=== PATIENT | male | born 1960 | race Two or more races ===

== ENCOUNTER 2021-07-18 10:35 | Outpatient (REF) | payer OTHER, SELFPAY ==
[2021-07-18 10:54] LABS: MANUAL DIFF FLAG NO
[2021-07-18 11:07] LABS: Basophils Percent Auto 0.6 % (0-2); Eosinophils Absolute Auto 0.3 X10*3/uL (0.0-0.4); Eosinophils Percent Auto 5.3 % (0-4); Hematocrit 40.7 % (42.0-52.0); Imm Gran Abs Auto 0.03 X10*3/uL (0.00-0.03); Imm Gran Pct Auto 0.6 % (0.0-0.4); Lymphocytes Absolute Auto 1.8 X10*3/uL (1.2-4.9); Lymphocytes Percent Auto 34.2 % (20-40); Mean Corpuscular HGB Conc 34.4 g/dl (31.0-36.0); Mean Corpuscular Hemoglobin 30.8 pg (27.0-33.0); Mean Corpuscular Volume 89.6 fL (80.0-98.0); Mean Platelet Volume 10.1 fL (9.4-12.4); Monocytes Absolute Auto 0.5 X10*3/uL (0.1-1.2); Monocytes Percent Auto 8.8 % (2-11); Neutrophils Absolute Auto 2.7 x10*3/uL (2.0-8.3); Neutrophils Percent Auto 50.5 % (45-73); Platelet Count 190 X10*3/uL (160-400); Red Blood Count 4.54 X10*6/uL (4.60-5.80); Red Cell Distribution Width 12.3 % (11.0-16.0); White Blood Count 5.3 X10*3/uL (4.8-10.8)
[2021-07-18 11:55] LABS: Alanine Aminotransferase 31 U/L (0-40); Albumin Level 4.4 g/dL (3.5-5.0); Alkaline Phosphatase 105 U/L (39-117); Anion Gap 11 (12-20); Aspartate Amino Transferase 18 U/L (5-37); Bilirubin Total 0.7 mg/dL (0.0-1.0); Blood Urea Nitrogen 18 mg/dL (9-16); Calcium 9.6 mg/dL (8.4-10.2); Carbon Dioxide 30 mmol/L (22-29); Chloride 100 mmol/L (96-108); Cholesterol 228 mg/dL; Estimated Glomerular Filt Rate > 60; Glucose Fasting 207 mg/dL (60-99); HDL Cholesterol 32 mg/dL; Potassium 3.9 mmol/L (3.3-5.1); Sodium 137 mmol/L (135-145); Total Protein 7.5 g/dL (6.5-8.0); Triglycerides 597 mg/dL
[2021-07-18 12:07] LABS: TSH reflex Free T4 1.05 uIU/mL (0.32-4.0); Vitamin D 25-OH Total 14.5 ng/mL (>30)
[2021-07-18 12:37] LABS: Appearance Urine CLEAR; Color Urine YELLOW; Glucose Urine UA 250 MG/DL (NEG); Leukocyte Esterase Urine NEG (NEG); Nitrite Urine NEG (NEG); Specific Gravity - Urine 1.015 (1.005-1.025); Urine Blood NEG (NEG); Urine Ketones NEG (NEG); Urine Protein NEG (NEG-TRACE)
[2021-07-18 12:54] LABS: Creatinine Urine 65.28 mg/dL; Microalbum/Creatinine Ratio Ur 111.8 ug/mg cr
== END 2021-07-18 10:36 | disposition home or self-care (01) ==
LOC: HO.LAB 10:35
PROVIDERS: PCP Internal Medicine; Visit Provider Internal Medicine
DX: E78.00 Pure hypercholesterolemia, unspecified (principal); E11.9 Type 2 diabetes mellitus without complications; E55.9 Vitamin D deficiency, unspecified; I10 Essential (primary) hypertension
CPT/HCPCS: 36415; 80053; 80061; 81003; 82043; 82306; 84443; 85025

== ENCOUNTER 2023-02-19 09:14 | Outpatient (AMB) | payer OTHER, SELFPAY ==
[2023-02-19 09:16] VITALS: BP 160/110; PULSE 80; O2SAT 98; BMI 26.7
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
== END 2023-02-19 10:06 | disposition home or self-care (01) ==
PROVIDERS: PCP Internal Medicine; Visit Provider Internal Medicine
DX: Z00.00 Encounter for general adult medical examination without abnormal findings (principal); I10 Essential (primary) hypertension; E11.65 Type 2 diabetes mellitus with hyperglycemia; E78.00 Pure hypercholesterolemia, unspecified; M17.11 Unilateral primary osteoarthritis, right knee; S20.211S Contusion of right front wall of thorax, sequela; S30.1XXS Contusion of abdominal wall, sequela; E55.9 Vitamin D deficiency, unspecified; E66.3 Overweight; Z12.11 Encounter for screening for malignant neoplasm of colon
CPT/HCPCS: 99396

== ENCOUNTER 2023-02-19 10:15 | Outpatient (REF) | payer OTHER, SELFPAY ==
[2023-02-19 10:46] LABS: Basophils Percent Auto 0.5 % (0-2); Eosinophils Absolute Auto 0.4 X10*3/uL (0.0-0.4); Eosinophils Percent Auto 6.1 % (0-4); Hematocrit 41.7 % (42.0-52.0); Hemoglobin 14.2 g/dl (14.0-18.0); Imm Gran Abs Auto 0.04 X10*3/uL (0.00-0.03); Imm Gran Pct Auto 0.6 % (0.0-0.4); Lymphocytes Percent Auto 32.9 % (20-40); MANUAL DIFF FLAG NO; Mean Corpuscular HGB Conc 34.1 g/dl (31.0-36.0); Mean Corpuscular Hemoglobin 29.6 pg (27.0-33.0); Mean Corpuscular Volume 86.9 fL (80.0-98.0); Mean Platelet Volume 10.4 fL (9.4-12.4); Monocytes Absolute Auto 0.5 X10*3/uL (0.1-1.2); Monocytes Percent Auto 8.5 % (2-11); Neutrophils Absolute Auto 3.2 x10*3/uL (2.0-8.3); Neutrophils Percent Auto 51.4 % (45-73); Platelet Count 178 X10*3/uL (160-400); Red Cell Distribution Width 11.8 % (11.0-16.0); White Blood Count 6.2 X10*3/uL (4.8-10.8)
[2023-02-19 10:50] LABS: Estimated Average Glucose 260 mg/dL; Hemoglobin A1c % 10.7 % (<6.0)
[2023-02-19 11:37] LABS: Alanine Aminotransferase 54 U/L (0-40); Albumin Level 4.3 g/dL (3.5-5.0); Alkaline Phosphatase 136 U/L (39-117); Anion Gap 14 (12-20); Aspartate Amino Transferase 30 U/L (5-37); Bilirubin Total 0.5 mg/dL (0.0-1.0); Blood Urea Nitrogen 15 mg/dL (9-16); Calcium 9.5 mg/dL (8.4-10.2); Carbon Dioxide 29 mmol/L (22-29); Chloride 100 mmol/L (96-108); Cholesterol 203 mg/dL (<200); Estimated Glomerular Filt Rate > 60; Glucose Fasting 290 mg/dL (60-99); HDL Cholesterol 30 mg/dL (>40); Potassium 3.5 mmol/L (3.3-5.1); Sodium 139 mmol/L (135-145); Total Protein 7.5 g/dL (6.5-8.0); Triglycerides 614 mg/dL (<150)
[2023-02-19 11:51] LABS: TSH reflex Free T4 1.11 uIU/mL (0.32-4.0); Vitamin D 25-OH Total 27.8 ng/mL (>30)
[2023-02-19 11:55] LABS: Prostate Specific Antigen 2.36 ng/mL (<0.05-4.0)
[2023-02-19 12:00] LABS: Appearance Urine Clear; Color Urine Yellow; Glucose Urine UA >=1000 mg/dL (Negative); Leukocyte Esterase Urine Negative (Negative); Nitrite Urine Negative (Negative); PH 6.5 (5.0-9.0); Specific Gravity - Urine 1.025 (1.005-1.025); UMIC TRIGGER UACC YES; Urine Blood Negative (Negative); Urine Ketones Negative (Negative); Urine Protein 30 (1+) mg/dL (Neg-Trace)
[2023-02-19 12:06] LABS: Bacteria Urine None Seen (None Seen); Hyaline Casts Urine 0-2 /LPF (0-2); RBC Urine 0-2 /HPF (0-2); Squamous Epithelial Cell Urine 0-2 /HPF (0-2); WBC Urine 0-5 /HPF (0-5)
[2023-02-19 12:25] LABS: Creatinine Urine 65.91 mg/dL; Microalbum/Creatinine Ratio Ur 291.3 ug/mg cr (<30)
== END 2023-02-19 10:16 | disposition home or self-care (01) ==
LOC: HO.LAB 10:15
PROVIDERS: PCP Internal Medicine; Visit Provider Internal Medicine
DX: Z00.00 Encounter for general adult medical examination without abnormal findings (principal); Z12.5 Encounter for screening for malignant neoplasm of prostate; E78.00 Pure hypercholesterolemia, unspecified; N40.0 Benign prostatic hyperplasia without lower urinary tract symptoms; E11.9 Type 2 diabetes mellitus without complications; E55.9 Vitamin D deficiency, unspecified; I10 Essential (primary) hypertension
CPT/HCPCS: 36415; 80053; 80061; 81001; 81003; 82043; 82306; 82570; 83036; 84153; 84443; 85025

== ENCOUNTER 2023-03-20 08:49 | Outpatient (AMB) | payer OTHER, SELFPAY ==
--- NOTE | 2023-03-20 09:28 | MHC.PC.OV ---
Vital Signs 03/20/23 09:30 Height 5 ft 9 in Weight 180 lb 2 oz BMI 26.6 BP 108/68 Blood Pressure Location Lt brachial Position Sitting Pulse 64 Pulse Source Pulse Oximeter Pulse Oximetry (%) 96 Oxygen Delivery Method Room Air Intake Visit Reasons: imbalance, vertigo Intake Note: Patient is here today for ED follow from [facility] on 03/11/23 for imbalance and vertigo Cert Pharmacy Tech Required: No Clinical Tech: Present Accompanied by: Spouse Allergies NSAIDS (Non-Steroidal Anti-Inflamma [NSAIDS (NON-STEROIDAL ANTI-INFLAMMA] Allergy (Severe, Verified 03/20/23 10:29) ASPIRIN ALLERGY...SWELLING AND HIVES aspirin [ASPIRIN] Allergy (Unknown, Verified 03/20/23 10:29) SWELLING/HIVES Penicillins [PENICILLINS] Allergy (Unknown, Verified 03/20/23 10:29) SWELLING/HIVES seafood Allergy (Unknown, Verified 03/20/23 10:29) Unknown Medication List - Last Reconciled 03/20/23 by Emiliano Hewitt MD acetaminophen 500 - 1,000 mg (1 - 2 x 500 mg) PO Q6H PRN amlodipine 10 mg PO DAILY 90 days atorvastatin 40 mg PO DAILY 90 days carvedilol 25 mg PO BID 90 days cholecalciferol (vitamin D3) 50 mcg PO DAILY 90 days dulaglutide 1.5 mg (0.5 mL) subcut QWEEK 4 weeks fenofibrate 54 mg PO DAILY 90 days metformin 1,000 mg PO BID 90 days spironolactone 25 mg PO DAILY 90 days valsartan-hydrochlorothiazide 320-25 mg 1 tab PO DAILY 90 days Tobacco use date assessed: 03/20/23 Dental Screening Dental Screen Date: 03/20/23 Did you have a dental visit in the last 12 months?: Yes Did you have a dental problem in the last 6 months where you did not have access to dental care?: No Was dental information given to patient?: Patient has dentist HPI imbalance, vertigo HPI Details 62-year-old male presents to the office for a follow-up visit. I am covering for his primary care provider. Patient was seen at [facility] for vertigo. After evaluation and diagnostic workup, he was discharged home on meclizine. Patient has completed the meclizine and his symptoms seem improving. Continues to have sudden episodes of vertigo still. The frequency and duration are decreasing every day. No nausea or vomiting. Patient has still not resumed driving. [facility] Medical History Vitamin D deficiency Overweight (BMI 25.0-29.9) Degenerative joint disease of right knee Pure hypercholesterolemia Diabetes mellitus Benign essential hypertension History of primary malignant neoplasm of urinary bladder Surgical History History of bladder surgery History of repair of right rotator cuff Previous back surgery Family History Mother High blood pressure Diabetes Father Cancer Social History Housing: Apartment Alcohol intake: former Patient Tobacco Use Status: Never used Tobacco e-Cigarette/Vaping Use: Never Used Second Hand Smoke Exposure: No service: No Current occupational status: employed Current occupational exposures/hazards: No Cognitive needs: No Hearing needs: No Vision needs: Yes (reading glasses) Questionnaire PHQ-9 Over the last 2 weeks, how often have you been bothered by any of the following problems? 1. Little interest or pleasure in doing things: not at all 2. Feeling down, depressed, or hopeless: not at all 3. Trouble falling or staying asleep, or sleeping too much: not at all 4. Feeling tired or having little energy: not at all 5. Poor appetite or overeating: not at all 6. Feeling bad about yourself - or that you are a failure or have let yourself or your family down: not at all 7. Trouble concentrating on things, such as reading the newspaper or watching television: not at all 8. Moving or speaking so slowly that other people could have noticed. Or the opposite - being so fidgety or restless that you have been moving around a lot more than usual: not at all 9. Thoughts that you would be better off or of hurting yourself in some way: not at all Total score: 0 Depression Screening Interpretation: Negative Depression Screening Done: Yes Source: Developed by Drs. Yonas Gay, Ashlie Wagner, Ck Urbano and colleagues, with an educational jennifer from [employer]. Thrive Questionnaire Date Thrive assessed: 03/20/23 I am a: Patient What is your living situation today?: I have a steady place to live Within the past 12 months, did the food you bought not last and you didn't have the money to get more?: Never true Within the past 12 months, did you worry whether your food would run out before you got money to buy more?: Never true Do you have trouble paying for medicines?: No Do you have trouble getting transportation to medical appointments?: No Do you have trouble paying your heating and electricity bill?: No Do you have trouble taking care of your child, family member or friend?: No Do you have trouble with day-to-day activities such as bathing, preparing meals, shopping, managing finances, etc.?: No Are you currently unemployed and looking for a job?: No Are you interested in more education?: No Currently or been in a relationship where the following occur: no concerns reported AUDIT C Alcohol Use Questionnaire (AUDIT-C) 1. How often do you have a drink containing alcohol?: Never Total Score: 0 ROSA-7 AMB Questionnaire ROSA-7 Date ROSA - 7 assessed: 03/20/23 Feeling nervous, anxious, or on edge: 0 = Not at all Not being able to stop or control worryin = Not at all Worrying too much about different things: 0 = Not at all Trouble relaxin = Not at all Being so restless that it is hard to sit still: 0 = Not at all Becoming easily annoyed or irritable: 0 = Not at all Feeling afraid as if something awful might happen: 0 = Not at all Total ROSA-7 score (0-4 normal; 5-9 mild; 10-14 moderate; 15-21 severe): 0 Source: Developed by Drs. Yonas Gay, Ck Medina and colleagues, with an educational jennifer from [employer]. Physical exam (Primary Care) Vital Signs: Last Vital Signs Pulse 64 03/20/23 09:30 BP 108/68 03/20/23 09:30 Pulse Ox 96 03/20/23 09:30 Oxygen Delivery Method Room Air 03/20/23 09:30 BMI result Body Mass Index 26.6 Tobacco/Smoking Status: Tobacco use Status Tobacco use date assessed 03/20/23 03/20/23 09:38 Patient Tobacco Use Status Never used Tobacco 03/20/23 09:38 e-Cigarette/Vaping Use Never Used 03/20/23 09:38 PHQ-9: PHQ-9 Score PHQ-9: Total score 0 03/20/23 09:38 Depression Screening Interpretation: Negative Thrive Assessment: Date of Thrive Assessment Date Thrive assessed 03/20/23 03/20/23 09:38 Currently or been in a relationship where the following occur: no concerns reported Const General: cooperative and healthy appearing Nutritional Appearance: well nourished Orientation/consciousness: patient oriented x3 Limitations: no limitations HENMT Head: Yes normal to inspection Eyes General: appearance normal, both eyes and all related structures Neck Neck: Yes normal visual inspection Chest Chest palpation & inspection: normal palpation of entire chest wall Resp Effort & Inspection: normal respiratory effort Neuro General: patient oriented x3 Assessment and Plan Assessment & Plan (1) Vertigo: Code(s): R42 - Dizziness and giddiness Plan: 15 minutes spent reviewing records from [facility]. Patient was encouraged to become more active. The vertigo symptoms should resolve. No further meclizine needed. Coding Level of Care Code Est Pt Level 4 (35099) Diagnoses Vertigo R42
[2023-03-20 09:30] VITALS: BP 108/68; PULSE 64; O2SAT 96; BMI 26.6
== END 2023-03-20 11:49 | disposition home or self-care (01) ==
PROVIDERS: PCP Internal Medicine; Visit Provider Internal Medicine
DX: R42 Dizziness and giddiness (principal)
CPT/HCPCS: 99214

== ENCOUNTER 2023-04-01 14:02 | Outpatient (AMB) | payer OTHER, SELFPAY ==
[2023-04-01 14:05] VITALS: BMI 26.7
--- NOTE | 2023-04-01 14:05 | MHC.OFFVIS ---
Intake Vital Signs 04/01/23 14:05 Height 5 ft 9 in Weight 180 lb 12.465 oz BMI 26.7 Intake Visit Reasons: Colonoscopy Screening Intake Note: This patient presents for an assessment for colonoscopy screening. Patient c/o; reports no complaints at this time. 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 Accompanied by: Self / Same As Patient Allergies NSAIDS (Non-Steroidal Anti-Inflamma [NSAIDS (NON-STEROIDAL ANTI-INFLAMMA] Allergy (Severe, Verified 04/01/23 14:12) ASPIRIN ALLERGY...SWELLING AND HIVES aspirin [ASPIRIN] Allergy (Unknown, Verified 04/01/23 14:12) SWELLING/HIVES Penicillins [PENICILLINS] Allergy (Unknown, Verified 04/01/23 14:12) SWELLING/HIVES seafood Allergy (Unknown, Verified 04/01/23 14:12) Unknown Medication List - Last Reconciled 04/01/23 by Nivia Neil PA-C acetaminophen 500 - 1,000 mg (1 - 2 x 500 mg) PO Q6H PRN amlodipine 10 mg PO DAILY 90 days atorvastatin 40 mg PO DAILY 90 days carvedilol 25 mg PO BID 90 days cholecalciferol (vitamin D3) 50 mcg PO DAILY 90 days dulaglutide 1.5 mg (0.5 mL) subcut QWEEK 4 weeks fenofibrate 54 mg PO DAILY 90 days metformin 1,000 mg PO BID 90 days spironolactone 25 mg PO DAILY 90 days valsartan-hydrochlorothiazide 320-25 mg 1 tab PO DAILY 90 days HPI HPI Comments History of Present Illness Details A 62 y/o male referred for screening colonoscopy-last nearly 10 years ago- normal. He has no GI complaints Appetite is good Normal bowels Vertigo- recently-otherwise he has been healthy And no nausea, vomiting, hematemesis, hematochezia fever chills No family history of GI cancer PFSH Medical History Vitamin D deficiency Overweight (BMI 25.0-29.9) Degenerative joint disease of right knee Pure hypercholesterolemia Diabetes mellitus Benign essential hypertension History of primary malignant neoplasm of urinary bladder Surgical History History of bladder surgery History of repair of right rotator cuff Previous back surgery Family History Mother High blood pressure Diabetes Father Cancer Social History Housing: Apartment Alcohol intake: former Patient Tobacco Use Status: Never used Tobacco e-Cigarette/Vaping Use: Never Used Second Hand Smoke Exposure: No service: No Current occupational status: employed Current occupational exposures/hazards: No Cognitive needs: No Hearing needs: No Vision needs: Yes (reading glasses) Review of Systems Const All systems reviewed & are unremarkable except as noted in HPI and below ENT Reports dizziness (vertigo) Card Denies chest pain and Denies dyspnea Resp Denies dyspnea GI Denies abdominal pain, Denies bloating, Denies hematochezia, Denies heartburn, Denies diarrhea, Denies nausea and Denies vomiting Neuro Reports dizziness (vertigo) Physical Exam Vital Signs: BMI result Body Mass Index 26.7 Const General: cooperative, healthy appearing, comfortable and no acute distress Orientation/consciousness: patient oriented x3 Limitations: no limitations Eyes Sclerae: sclerae normal Resp Effort & Inspection: normal respiratory effort and able to speak in complete sentences Auscultation: clear to auscultation bilaterally, no rhonchi and no wheezes Cardio Rate: regular rate Rhythm: regular rhythm Heart sounds: S1 normal heart sound present and S2 normal heart sound present GI Palpation (GI): Soft to palpation and nontender Auscultation: normal bowel sounds Skin General skin exam: no rashes or lesions noted Neuro General: patient oriented x3 Extrem General: Yes full ROM Psych Appearance: grossly normal and well kempt Mental Status: mental status grossly normal Speech and movement: Normal speech and movement present and Clear speech present Affect: normal affect Attitude: cooperative Thought process: Normal thought process present Thought content: Normal thought content present Insight: Good insight present (Psych) Judgement: Good judgement present (Psych) Assessment & Plan Assessment & Plan (1) Colon cancer screening: Code(s): Z12.11 - Encounter for screening for malignant neoplasm of colon Plan colonoscopy MG prep Trity- Saturdays-need to omit dose, 1 full week prior to procedure omit metformin sulma before am of colon Orders: Orders Colonoscopy - GI Use Only 04/01/23 Z12.11 - Encounter for screening for malignant neoplasm of colon Medications: New bisacodyl (Dulcolax (bisacodyl)) Day before procedure, prep day Take 4 tablets by mouth upon awakening followed by large glass of water 20 mg (4 x 5 mg) PO ONCE 4 tabs 0RF colonoscopy prep 1 day Z12.11 - Encounter for screening for malignant neoplasm of colon polyethylene glycol 3350 (Miralax) Take as directed by mouth the day before your procedure. 238 grams PO ONCE 238 grams 0RF laxative effect 1 day Patient Instructions: Polyp surveillance colonoscopy MG prep, reviewed, literature given Opportunity for questions or to his satisfied [facility] Saturdays-need to omit dose, 1 full week prior to procedure omit metformin sulma before am of colon Encouraged to call with questions or concerns Coding Level of Care Code New Pt Level 3 (49383) Diagnoses Colon cancer screening Z12.11 Time Spent (min) 30
== END 2023-04-01 14:43 | disposition home or self-care (01) ==
PROVIDERS: PCP Internal Medicine; Visit Provider Physician Assistant
DX: Z12.11 Encounter for screening for malignant neoplasm of colon (principal); Z01.818 Encounter for other preprocedural examination
CPT/HCPCS: 99203

== ENCOUNTER → 2023-04-01 14:02 | Outpatient (BNVA) | payer OTHER, SELFPAY | PROVIDERS: PCP Internal Medicine; Visit Provider Physician Assistant ==

== ENCOUNTER 2023-06-21 09:37 | Outpatient (REF) | payer OTHER, SELFPAY ==
[2023-06-21 10:06] LABS: MANUAL DIFF FLAG NO
[2023-06-21 10:36] LABS: Basophils Absolute Auto 0.1 X10*3/uL (0.0-0.2); Basophils Percent Auto 0.6 % (0-2); Eosinophils Absolute Auto 0.4 X10*3/uL (0.0-0.4); Eosinophils Percent Auto 4.3 % (0-4); Hematocrit 41.9 % (42.0-52.0); Hemoglobin 14.8 g/dl (14.0-18.0); Imm Gran Abs Auto 0.08 X10*3/uL (0.00-0.03); Imm Gran Pct Auto 0.9 % (0.0-0.4); Lymphocytes Absolute Auto 2.5 X10*3/uL (1.2-4.9); Lymphocytes Percent Auto 27.8 % (20-40); Mean Corpuscular HGB Conc 35.3 g/dl (31.0-36.0); Mean Corpuscular Hemoglobin 30.1 pg (27.0-33.0); Mean Corpuscular Volume 85.3 fL (80.0-98.0); Mean Platelet Volume 9.7 fL (9.4-12.4); Monocytes Absolute Auto 0.7 X10*3/uL (0.1-1.2); Monocytes Percent Auto 8.3 % (2-11); Neutrophils Absolute Auto 5.1 x10*3/uL (2.0-8.3); Neutrophils Percent Auto 58.1 % (45-73); Platelet Count 237 X10*3/uL (160-400); Red Blood Count 4.91 X10*6/uL (4.60-5.80); Red Cell Distribution Width 12.1 % (11.0-16.0); White Blood Count 8.8 X10*3/uL (4.8-10.8)
[2023-06-21 11:09] LABS: Estimated Average Glucose 189 mg/dL; Hemoglobin A1c % 8.2 % (<6.0)
[2023-06-21 11:27] LABS: Alanine Aminotransferase 47 U/L (0-40); Albumin Level 4.3 g/dL (3.5-5.0); Alkaline Phosphatase 90 U/L (39-117); Anion Gap 12 (12-20); Aspartate Amino Transferase 25 U/L (5-37); Blood Urea Nitrogen 12 mg/dL (9-16); Calcium 9.6 mg/dL (8.4-10.2); Carbon Dioxide 29 mmol/L (22-29); Chloride 100 mmol/L (96-108); Cholesterol 216 mg/dL (<200); Estimated Glomerular Filt Rate > 60; Glucose Fasting 165 mg/dL (60-99); HDL Cholesterol 36 mg/dL (>40); LDL Cholesterol Calculated 120 mg/dL (<100); Potassium 3.4 mmol/L (3.3-5.1); Sodium 138 mmol/L (135-145); Total Protein 7.6 g/dL (6.5-8.0); Triglycerides 304 mg/dL (<150)
[2023-06-21 11:34] LABS: TSH reflex Free T4 1.17 uIU/mL (0.32-4.0); Vitamin D 25-OH Total 24.5 ng/mL (>30)
[2023-06-21 11:47] LABS: Appearance Urine Clear; Color Urine Yellow; Glucose Urine UA Negative (Negative); Leukocyte Esterase Urine Negative (Negative); Nitrite Urine Negative (Negative); Urine Blood Negative (Negative); Urine Ketones Negative (Negative); Urine Protein Trace mg/dL (Neg-Trace)
[2023-06-21 12:07] LABS: Creatinine Urine 56.85 mg/dL; Microalbum/Creatinine Ratio Ur 167.1 ug/mg cr (<30)
== END 2023-06-21 09:38 | disposition home or self-care (01) ==
LOC: HO.LAB 09:37
PROVIDERS: PCP Internal Medicine; Visit Provider Internal Medicine
DX: R30.0 Dysuria (principal); E78.00 Pure hypercholesterolemia, unspecified; D64.9 Anemia, unspecified; E55.9 Vitamin D deficiency, unspecified; E11.9 Type 2 diabetes mellitus without complications
CPT/HCPCS: 36415; 80053; 80061; 81003; 82043; 82306; 82570; 83036; 84443; 85025

== ENCOUNTER 2023-06-25 14:14 | Outpatient (AMB) | payer OTHER, SELFPAY ==
[2023-06-25 14:35] VITALS: BP 144/86; PULSE 69; O2SAT 96; BMI 26.9
--- NOTE | 2023-06-25 14:35 | A.OFFPC_ITS ---
Vital Signs 06/25/23 14:35 Height 5 ft 9 in Weight 182 lb 0.8 oz BMI 26.9 BP 144/86 H Blood Pressure Location Lt brachial Position Sitting Pulse 69 Pulse Source Pulse Oximeter Pulse Oximetry (%) 96 Oxygen Delivery Method Room Air Intake Visit Reasons: DM, hyperlipidemia, HTN Intake Note: Patient is here to follow up on DM, hyperlipidemia, HTN [employer] Required: No Allergies NSAIDS (Non-Steroidal Anti-Inflamma [NSAIDS (NON-STEROIDAL ANTI-INFLAMMA] Allergy (Severe, Verified 06/25/23 15:05) ASPIRIN ALLERGY...SWELLING AND HIVES aspirin [ASPIRIN] Allergy (Unknown, Verified 06/25/23 15:05) SWELLING/HIVES Penicillins [PENICILLINS] Allergy (Unknown, Verified 06/25/23 15:05) SWELLING/HIVES seafood Allergy (Unknown, Verified 06/25/23 15:05) Unknown Medication List - Last Reconciled 06/25/23 by Myles Ortega MD acetaminophen 500 - 1,000 mg (1 - 2 x 500 mg) PO Q6H PRN amlodipine 10 mg PO DAILY 90 days atorvastatin 40 mg PO DAILY 90 days bisacodyl (Dulcolax (bisacodyl)) 20 mg (4 x 5 mg) PO ONCE 1 day carvedilol 25 mg PO BID 90 days cholecalciferol (vitamin D3) 50 mcg PO DAILY 90 days dulaglutide 1.5 mg (0.5 mL) subcut QWEEK 4 weeks fenofibrate 54 mg PO DAILY 90 days metformin 1,000 mg PO BID 90 days polyethylene glycol 3350 (Miralax) 238 grams PO ONCE 1 day spironolactone 25 mg PO DAILY 90 days valsartan-hydrochlorothiazide 320-25 mg 1 tab PO DAILY 90 days Tobacco use date assessed: 06/25/23 Dental Screening Dental Screen Date: 03/20/23 HPI DM, hyperlipidemia, HTN HPI Details Patient comes in today for his follow up visit States that he feels okay He denies any headaches or dizziness Denies any chest pains, no SOB No nausea/vomiting, no abdominal pain No change in bowel habits noted Had his follow up labs done a few days ago - to discuss his results Needs his Trulicity Rx refilled - his states that he has been out of this for a few weeks now Patient adds that lately, he has noticed that his blood pressure goes up very high consistently at night and 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 States that he does not have any increased headaches or dizziness lately but sometimes wakes up in the morning with a pounding sensation in his head Also states that he has been experiencing a recurrent pain over the dorsal aspect of his left hand for the past year - he suspects that he may have a metal pin lodged in his hand (thinks it was from work) but he was reportedly told by someone that it was not likely PFSH Medical History Vitamin D deficiency Overweight (BMI 25.0-29.9) Degenerative joint disease of right knee Pure hypercholesterolemia Diabetes mellitus Benign essential hypertension History of primary malignant neoplasm of urinary bladder Surgical History History of bladder surgery History of repair of right rotator cuff Previous back surgery Family History Mother High blood pressure Diabetes Father Cancer Social History Housing: Apartment Alcohol intake: former Patient Tobacco Use Status: Never used Tobacco e-Cigarette/Vaping Use: Never Used Second Hand Smoke Exposure: No service: No Current occupational status: employed Current occupational exposures/hazards: No Cognitive needs: No Hearing needs: No Vision needs: Yes (reading glasses) Questionnaire PHQ-9 Over the last 2 weeks, how often have you been bothered by any of the following problems? 1. Little interest or pleasure in doing things: not at all 2. Feeling down, depressed, or hopeless: not at all 3. Trouble falling or staying asleep, or sleeping too much: not at all 4. Feeling tired or having little energy: not at all 5. Poor appetite or overeating: not at all 6. Feeling bad about yourself - or that you are a failure or have let yourself or your family down: not at all 7. Trouble concentrating on things, such as reading the newspaper or watching television: not at all 8. Moving or speaking so slowly that other people could have noticed. Or the opposite - being so fidgety or restless that you have been moving around a lot more than usual: not at all 9. Thoughts that you would be better off or of hurting yourself in some way: not at all Total score: 0 Depression Screening Interpretation: Negative Depression Screening Done: Yes 93020 - PHQ-9 Billing: Yes Source: Developed by Drs. Yonas Gay, Ashlie Wagner, Ck Urbano and colleagues, with an educational jennifer from [employer]. Thrive Questionnaire Date Thrive assessed: 06/25/23 I am a: Patient What is your living situation today?: I have a steady place to live Within the past 12 months, did the food you bought not last and you didn't have the money to get more?: Never true Within the past 12 months, did you worry whether your food would run out before you got money to buy more?: Never true Do you have trouble paying for medicines?: No Do you have trouble getting transportation to medical appointments?: No Do you have trouble paying your heating and electricity bill?: No Do you have trouble taking care of your child, family member or friend?: No Do you have trouble with day-to-day activities such as bathing, preparing meals, shopping, managing finances, etc.?: No Are you currently unemployed and looking for a job?: No Are you interested in more education?: No Please select the resources that you would like help with: None Currently or been in a relationship where the following occur: no concerns reported THRIVE Score: 0 AUDIT C Alcohol Use Questionnaire (AUDIT-C) 1. How often do you have a drink containing alcohol?: Never 3. How often do you have six or more drinks on one occasion?: Never Total Score: 0 Score Reviewed/Action Taken: Yes ROSA-7 AMB Questionnaire ROSA-7 Date ROSA - 7 assessed: 03/20/23 Source: Developed by Drs. Yonas Gay, Ashlie Wagner, Ck Urbano and colleagues, with an educational jennifer from [employer]. Review of Systems Const Denies chills, Denies fatigue, Denies fever(s) and Denies headache(s) ENT Denies dysphagia, Denies dizziness, Denies otalgia, Denies headache(s), Denies neck pain, Denies odynophagia and Denies sore throat Card Denies chest pain, Denies rapid heart rate, Denies irregular heart rhythm, Denies palpitations and Denies dyspnea Resp Denies chest congestion, Denies cough, Denies dyspnea and Denies wheezing GI Denies abdominal pain, Denies constipation, Denies dysphagia, Denies heartburn, Denies diarrhea, Denies nausea, Denies odynophagia and Denies vomiting Denies hematuria, Denies difficulty urinating, Denies dysuria and Denies urinary frequency Musc Details: (+) pain over the dorsum of the left hand - see HPI Denies back pain, Denies arthralgias and Denies neck pain Skin/Breast Denies rash Neuro Denies dizziness and Denies headache(s) Endo Denies fatigue and Denies palpitations Aller/Immun Denies wheezing Physical exam (Primary Care) Vital Signs: Last Vital Signs Pulse 69 06/25/23 14:35 BP 144/86 H 06/25/23 14:35 Pulse Ox 96 06/25/23 14:35 Oxygen Delivery Method Room Air 06/25/23 14:35 BMI result Body Mass Index 26.9 Tobacco/Smoking Status: Tobacco use Status Tobacco use date assessed 06/25/23 06/25/23 14:39 Patient Tobacco Use Status Never used Tobacco 06/25/23 14:35 e-Cigarette/Vaping Use Never Used 06/25/23 14:35 Depression Screening Interpretation: Negative Thrive Assessment: Date of Thrive Assessment Date Thrive assessed 06/25/23 06/25/23 14:39 Currently or been in a relationship where the following occur: no concerns reported Const General: no acute distress and alert HENMT Ears: TM's normal bilaterally and EAC's normal Throat: Yes posterior oropharynx normal and Yes tonsils normal (no TP congestion) Neck Neck: Yes no lymphadenopathy and Yes supple Thyroid: Thyroid normal Resp Auscultation: clear to auscultation bilaterally, no rales and no wheezes Cardio Rate: regular rate Rhythm: regular rhythm Heart sounds: no murmurs GI Palpation (GI): Soft to palpation and nontender Auscultation: normal bowel sounds General: Yes no CVA tenderness Back/Spine/Pelvis Back: no CVA tenderness Skin Rashes: no rashes Extrem General: Yes no clubbing, cyanosis or edema Left upper extremity: hand Details: tenderness Location: of the dorsal hand Results Reviewed Results Reviewed: Laboratory Tests 02/19/23 06/21/23 06/21/23 Unknown 10:04 10:37 WBC 8.8 Hgb 14.8 Hct 41.9 L Plt Count 237 D Sodium 138 Potassium 3.4 Creatinine 0.81 Estimated GFR > 60 Fasting Glucose 165 H Hemoglobin A1c % 8.2 H Calcium 9.6 AST 25 ALT 47 H Triglycerides 614 H 304 H Cholesterol 203 H 216 H LDL Cholesterol, Calc 120 H HDL Cholesterol 30 L 36 L 25-OH Vitamin D Total 24.5 L TSH 1.17 Ur Specific [place] 1.010 Urine Protein Trace Urine Glucose (UA) Negative Urine Blood Negative Urine Nitrite Negative Ur Leukocyte Esterase Negative Microalb/Creat Ratio 167.1 H Assessment and Plan Assessment & Plan (1) Benign essential hypertension: Code(s): I10 - Essential (primary) hypertension Plan: Reinforced low sodium diet - goal is systolic BP of at least 120 to 130 mm or less Continue Amlodipine 10 mg QD, Spironolactone 25 mg QD, Carvedilol 25 mg BID and Valsartan-HCT 320-25 mg QD Will start him on a trial of Clonidine 0.2 mg QHS to see if this will keep 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 from rising too high He is reminded to continue monitoring his blood pressure regularly (2) Diabetes mellitus: Code(s): E11.9 - Type 2 diabetes mellitus without complications Qualifiers: Diabetes mellitus type: type 2 Diabetes mellitus long-term insulin use: without ferry terminal agent use Diabetes mellitus complication status: with hyperglycemia Qualified Code(s): E11.65 - Type 2 diabetes mellitus with hyperglycemia Plan: HgbA1c was at 8.2% on his labs done a few days ago (was at 10.7% back in February 2024) - goal is <7.0% Continue Metformin 1000 mg BID and Trulicity 1.5 mg SQ once a week; he has admittedly been out of his Trulicity for a few weeks now and will start him back on this - Rx refilled Will recheck his labs and HgbA1c in 3 months for follow up (3) Pure hypercholesterolemia: Code(s): E78.00 - Pure hypercholesterolemia, unspecified Plan: Results of his labs done a few days ago reviewed and discussed with patient - he is advised that his triglyceride level is still high although it has come down from previous Reinforced low cholesterol diet Continue Atorvastatin 40 mg QD and Fenofibrate 54 mg QD - it appears that he has also been off his Fenofibrate as it has not been refilled in almost a year - Rx refilled Will recheck his labs and fasting lipids in 3 months for follow up (4) Degenerative joint disease of right knee: Code(s): M17.11 - Unilateral primary osteoarthritis, right knee Qualifiers: Osteoarthritis type: primary Qualified Code(s): M17.11 - Unilateral primary osteoarthritis, right knee Plan: Follow up with [facility] as scheduled Was previously being scheduled for some surgery on his knee but this was postponed/canceled - is unsure why Continue Tylenol 1,000 mg every 6 hours PRN for pain To consider referral to rheumatology if his joint symptoms persist or get worse (5) Vitamin D deficiency: Code(s): E55.9 - Vitamin D deficiency, unspecified Plan: Continue Vitamin D3 2000 units QD Will recheck his Vitamin D level for follow up (6) Left hand pain: Code(s): M79.642 - Pain in left hand Plan: Will send him for x-rays of the left hand for further evaluation Is advised that if there is any metallic object lodged in the soft tissues of his hand, it should show up on x-rays (7) Overweight (BMI 25.0-29.9): Code(s): E66.3 - Overweight Plan: Reinforced diet/exercise as tolerated/lose weight Plan Follow up in 3 months Orders: Orders Complete Blood Count Auto Diff 3 Months D64.9 - Anemia, unspecified TSH reflex Free T4 3 Months E78.00 - Pure hypercholesterolemia, unspecified UA CC w/rflx Micro + Cult 3 Months R30.0 - Dysuria Microalbumin, Random (w Creat) 3 Months E11.9 - Type 2 diabetes mellitus without complications Vitamin D 25-OH Total 3 Months E55.9 - Vitamin D deficiency, unspecified XR hand LT 2V Today M79.642 - Pain in left hand Comprehensive [place]. Panel Fast 3 Months E78.00 - Pure hypercholesterolemia, unspecified Lipid Panel 3 Months E78.00 - Pure hypercholesterolemia, unspecified Hemoglobin A1c 3 Months E11.9 - Type 2 diabetes mellitus without complications Medications: New clonidine HCl 0.2 mg PO BEDTIME 90 days 90 tabs 1RF Refilled fenofibrate 54 mg PO DAILY 90 days 90 tabs 3RF E78.1 - Pure hyperglyceridemia dulaglutide 1.5 mg (0.5 mL) subcut QWEEK 4 weeks 2 mL 5RF E11.65 - Type 2 diabetes mellitus with hyperglycemia Coding Level of Care Code Est Pt Level 4 (13848) Diagnoses Benign essential hypertension I10 Type 2 diabetes mellitus with hyperglycemia, without long-term current use of insulin E11.65 Diabetes mellitus type: type 2 Diabetes mellitus long-term insulin use: without long-term use Diabetes mellitus complication status: with hyperglycemia Pure hypercholesterolemia E78.00 Primary osteoarthritis of right knee M17.11 Osteoarthritis type: primary Vitamin D deficiency E55.9 Left hand pain M79.642 Overweight (BMI 25.0-29.9) E66.3
== END 2023-06-25 15:27 | disposition home or self-care (01) ==
PROVIDERS: PCP Internal Medicine; Visit Provider Internal Medicine
DX: I10 Essential (primary) hypertension (principal); E11.65 Type 2 diabetes mellitus with hyperglycemia; E78.00 Pure hypercholesterolemia, unspecified; M17.11 Unilateral primary osteoarthritis, right knee; E55.9 Vitamin D deficiency, unspecified; M79.642 Pain in left hand; E66.3 Overweight
CPT/HCPCS: 99214

== ENCOUNTER 2023-06-28 09:19 | Outpatient (REF) | payer OTHER, SELFPAY ==
--- NOTE | ~2023-06-28 | XR_ITS ---
EXAMINATION: XR HAND, LEFT CLINICAL INFORMATION: Pain in left hand. Patient states history of metal in hand from work injury 1 year ago. Patient states sharp pain on dorsal aspect of hand. COMPARISON: None available. TECHNIQUE: PA, lateral, and oblique views of the left hand. FINDINGS: Subtle 2-3 mm linear opacity in the soft tissues along the mid dorsal aspect of the metacarpals on the lateral view with overlying soft tissue swelling, possibly representing a foreign body for this patient with given history of possible foreign body. Small calcific density along the volar aspect of the wrist, possibly related to chronic/degenerative process versus prior trauma of indeterminate age. Mild degenerative changes in scattered IP joints, particularly notable in the second and third DIP joints. Mild degenerative changes in the first carpometacarpal joint with joint space narrowing and hypertrophic change. XR/XR hand LT min 3V IMPRESSION: 1. Subtle 2-3 mm linear opacity in the soft tissues along the mid dorsal aspect of the metacarpals on the lateral view with overlying soft tissue swelling, possibly representing a foreign body for this patient with given history of possible foreign body. 2. Small calcific density along the volar aspect of the wrist, possibly related to chronic/degenerative process versus prior trauma of indeterminate age. 3. Mild degenerative changes in scattered IP joints, particularly notable in the second and third DIP joints. Mild degenerative changes in the first carpometacarpal joint with joint space narrowing and hypertrophic change.
== END 2023-06-28 09:20 | disposition home or self-care (01) ==
LOC: HO.XRAY 09:19
PROVIDERS: PCP Internal Medicine; Visit Provider Internal Medicine
DX: M79.642 Pain in left hand (principal)
CPT/HCPCS: 73130

== ENCOUNTER 2023-07-06 14:55 | Emergency (ER) | payer OTHER, SELFPAY ==
--- NOTE | ~2023-07-06 | CT_ITS ---
EXAMINATION: CT HEAD WITHOUT CONTRAST CLINICAL INFORMATION: Dizziness since the night prior. COMPARISON: None available. TECHNIQUE: Contiguous axial imaging was performed from the skull base to vertex without intravenous administration of contrast. This CT examination was performed using dose optimization techniques as appropriate, variously including the following: *Automated exposure control *Adjustment of mA and/or kV according to patient size (this includes techniques or standardized protocols for targeted exams where dose is matched to indication/reason for exam; i.e. extremities or head) *Use of iterative reconstruction technique DLP: 776 mGy-cm FINDINGS: There is no acute intracranial hemorrhage or evidence of territorial infarction. No abnormal mass effect or midline shift is seen. [place] to white matter differentiation is well preserved. There is no abnormal attenuation within the brain parenchyma. The ventricles are normal in size. No extra-axial fluid collections are identified. The calvarium and scalp soft tissues are normal. The middle ear cavity and mastoid air cells are clear. The visualized paranasal sinuses are clear. CT/CT head/brain wo IV con IMPRESSION: No acute intracranial pathology.
--- NOTE | ~2023-07-06 | CT_ITS ---
EXAMINATION: CTA OF THE HEAD AND NECK CLINICAL INFORMATION: Acute dizziness. Right cranial nerve IV palsy. COMPARISON: Head CT from 07/06/2023. TECHNIQUE: Test bolus sequences followed by intravenous administration 70 mL of Omnipaque 350. Helical imaging was performed in the axial plane from the mediastinum to the skull vertex. Delayed postcontrast imaging of the head was also performed. The data was processed at the marketing technologist's workstation for generation of MIP sequences. Three-dimensional volume rendered reformatted images were also generated at an offline 3-D workstation. Stenoses are assessed in accordance with NASCET criteria unless otherwise indicated. This CT examination was performed using dose optimization techniques as appropriate, variously including the following: *Automated exposure control *Adjustment of mA and/or kV according to patient size (this includes techniques or standardized protocols for targeted exams where dose is matched to indication/reason for exam; i.e. extremities or head) *Use of iterative reconstruction technique DLP: 2335 mGy-cm. FINDINGS: CTA neck: The imaged aortic arch and origins of the great vessels are normal. The common carotid arteries are widely patent. The carotid bifurcations are patent with mild atherosclerotic wall calcifications. The cervical internal carotid arteries are normal. The vertebral arteries opacify normally and are of normal caliber. The soft tissues of the neck are unremarkable. Mild cervical spondylosis noted. The imaged portions of the lungs are clear with apical bullae visible bilaterally. CTA head: The intradural vertebral arteries and basilar artery are normal. The posterior cerebral arteries are widely patent. The internal carotid arteries are relatively normal in caliber with mild luminal irregularities from atherosclerotic disease. The URIEL and MCA vascular complexes bilaterally are normal. There is no abnormal parenchymal or leptomeningeal enhancement. Partially empty sella noted. The venous sinuses opacify normally. CT/CT angio head neck IMPRESSION: No hemodynamically significant stenosis or vessel occlusion in the cervical or intracranial vasculature at the level of the [place]. Mild atheromatous disease in the cavernous internal carotid arteries and of the carotid bifurcations.
[2023-07-06 15:02] VITALS: BP 181/102; PULSE 73; RESP 17; TEMP 36.6; O2SAT 98; BMI 27.8
--- NOTE | 2023-07-06 15:05 | ED_ITS ---
HPI - General Adult General Chief complaint: Dizziness Stated complaint: Double vision/Dizziness Time Seen by Provider: 07/06/23 16:43 Source: patient Mode of arrival: ambulatory Limitations: no limitations History of Present Illness HPI narrative: Patient diabetic with history of hypertension noticed dizziness vertiginous feeling since yesterday when he looks on the left side no tinnitus no gait problem patient ambulatory normal otherwise, no fever no headache Related Data Previous Rx's ?Medication ?Instructions ?Recorded acetaminophen 500 mg tablet 500 - 1,000 mg (1 - 2 x 500 mg) PO 08/01/21 Q6H PRN pain #30 tabs cholecalciferol (vitamin D3) 50 50 mcg PO DAILY 90 days #90 caps 09/19/21 mcg (2,000 unit) capsule amlodipine 10 mg tablet 10 mg PO DAILY 90 days #90 tabs 10/17/21 atorvastatin 40 mg tablet 40 mg PO DAILY 90 days #90 tabs 02/27/22 metformin 1,000 mg tablet 1,000 mg PO BID 90 days #180 tabs 02/27/22 carvedilol 25 mg tablet 25 mg PO BID 90 days #180 tabs 01/28/23 spironolactone 25 mg tablet 25 mg PO DAILY 90 days #90 tabs 01/28/23 valsartan 320 1 tab PO DAILY 90 days #90 tabs 02/19/23 mg-hydrochlorothiazide 25 mg tablet bisacodyl 5 mg tablet,delayed 20 mg (4 x 5 mg) PO ONCE 04/01/23 release (Dulcolax (bisacodyl)) colonoscopy prep 1 day #4 tabs polyethylene glycol 3350 17 238 g PO ONCE laxative effect 1 04/01/23 gram/dose oral powder (Miralax) day #238 grams clonidine HCl 0.2 mg tablet 0.2 mg PO BEDTIME 90 days #90 tabs 06/25/23 dulaglutide 1.5 mg/0.5 mL 1.5 mg (0.5 mL) subcut QWEEK 4 06/25/23 subcutaneous pen injector weeks #2 mL fenofibrate 54 mg tablet 54 mg PO DAILY 90 days #90 tabs 06/25/23 meclizine 25 mg tablet 25 mg PO TID PRN dizziness #20 tabs 07/06/23 Allergies Allergy/AdvReac Type Severity Reaction Status Date / Time NSAIDS (Non-Steroidal Allergy Severe ASPIRIN Verified 07/06/23 15:05 Anti-Inflamma ALLERGY...SWELLING [NSAIDS (NON-STEROIDAL AND HIVES ANTI-INFLAMMA] aspirin [ASPIRIN] Allergy Unknown SWELLING/HI Verified 07/06/23 15:05 VES Penicillins [PENICILLINS] Allergy Unknown SWELLING/HI Verified 07/06/23 15:05 VES seafood Allergy Unknown Unknown Verified 07/06/23 15:05 Review of Systems 2 Review of Systems: Yes all other systems are reviewed and are negative [facility] Past Medical History Medical History Vitamin D deficiency Overweight (BMI 25.0-29.9) Degenerative joint disease of right knee Pure hypercholesterolemia Diabetes mellitus Benign essential hypertension History of primary malignant neoplasm of urinary bladder Surgical History History of bladder surgery History of repair of right rotator cuff Previous back surgery Family History Family History Mother High blood pressure Diabetes Father Cancer Social History Social History Housing: Apartment Alcohol intake: former Patient Tobacco Use Status: Never used Tobacco Smoked in Last 30 Days: No e-Cigarette/Vaping Use: Never Used Second Hand Smoke Exposure: No Use of substances other than those prescribed or required for medical reasons: No Advance Directives: No Advance Directives Information Provided: No service: No Current occupational status: employed Current occupational exposures/hazards: No Cognitive needs: No Hearing needs: No Vision needs: Yes (reading glasses) Physical Exam ED Vital Signs: Vital Signs - 24 hr 07/06/23 15:02 07/06/23 16:11 07/06/23 18:00 Temperature 98 F 98.0 F 98 F Pulse Rate 73 69 63 Respiratory Rate 17 16 18 Blood Pressure 181/102 H 170/90 H 155/79 H Pulse Oximetry 98 97 96 Oxygen Delivery Method Room Air Room Air Room Air 07/06/23 20:49 07/06/23 23:10 07/06/23 23:17 Temperature 98.1 F 98.2 F 98.2 F Pulse Rate 62 71 71 Respiratory Rate 14 12 12 Blood Pressure 150/87 H 148/82 H 148/82 H Pulse Oximetry 97 93 93 Oxygen Delivery Method Room Air Room Air Room Air BMI result Body Mass Index 27.8 Appearance: Alert. Oriented X3. No acute distress. Eyes: No Nystagmus right 4th Cr nerve palsy with limited medial movement of the right eye pupils normal size and react ENT: Pharynx normal. Oral Mucosa moist Neck: Normal inspection. Neck supple. CVS: Normal heart rate and rhythm. Pulses normal. Respiratory: No respiratory distress. Equal air entry bilateral, no wheezing/rales/rhonchi Abdomen: Soft and nontender. Bowel sounds are present, no mass palpable, no CVA tenderness Skin: Skin warm and dry. Normal skin color. Normal skin turgor. Extremities: No lower extremity edema. No calf tenderness Neuro: Oriented X 3. No motor deficit. No sensory deficit.No cerebellar signs , cranial nerves II-XII intact Course Course Course Narrative: RME: 63 yold male presents to ED for double vision and dizziness since last night. Patient hypertensive. pmh of vertigo. Presently no neuro deficits. Glucose at home on 120. negative ataxia. NIH score is 0. Patient hypertensive. Patient is out of window for any tPA. Symptoms since last night Case discussed with Dr. Hernandez recommend dry head CT to start. Charge nurse informed to bring patient to the ED. labs EKG ordered Medications Administered Discontinued Medications Generic Name Dose Route Start Last Admin Trade Name Freq PRN Reason Stop Dose Admin Diphenhydramine HCl 50 mg 07/06/23 18:56 07/06/23 19:38 Diphenhydramine Hcl 50 Mg/Ml Vial IVPUSH 07/06/23 18:57 50 mg ONCE ONE Administration Iohexol 70 ml 07/06/23 20:05 07/06/23 20:06 Iohexol 350 Mg/Ml 100 Ml Infus..Btl IV 07/06/23 20:06 70 ml ONCE ONE Administration Meclizine HCl 50 mg 07/06/23 17:37 07/06/23 17:44 Meclizine Hcl 25 Mg Tablet PO 07/06/23 17:38 50 mg ONCE ONE Administration Methylprednisolone Sodium Succinate 125 mg 07/06/23 18:56 07/06/23 19:38 Methylprednisolone Sod Succ 125 Mg/2 Ml Vial IVPUSH 07/06/23 18:57 125 mg ONCE ONE Administration Medical Decision Making Medical Decision Making [facility] Narrative: Patient with isolated right medial rectal palsy from 3rd no secondary to diabetes ischemia causing diplopia does have vertiginous feeling feeling much better after meclizine CT CTA negative acute stroke will discharge patient home advised to follow with neurologist Differential Diagnosis Differential Diagnoses: The differential diagnosis associated with the presentation includes TIA/CVA/hyperglycemic ocular neuropathy Lab Data [facility] Lab Attestation statement: I reviewed the patient's lab results. 07/06/23 15:16 07/06/23 15:16 Labs: Lab Results 07/06/23 Range/Units 15:16 WBC 7.7 (4.8-10.8) X10*3/uL RBC 5.03 (4.60-5.80) X10*6/uL Hgb 15.3 (14.0-18.0) g/dl Hct 43.8 (42.0-52.0) % MCV 87.1 (80.0-98.0) fL MCH 30.4 (27.0-33.0) pg MCHC 34.9 (31.0-36.0) g/dl RDW 12.2 (11.0-16.0) % Plt Count 218 (160-400) X10*3/uL MPV 9.7 (9.4-12.4) fL Immature Gran % (Auto) 0.4 (0.0-0.4) % Neut % (Auto) 56.2 (45-73) % Lymph % (Auto) 31.0 (20-40) % [place] % (Auto) 7.4 (2-11) % Eos % (Auto) 4.6 H (0-4) % Baso % (Auto) 0.4 (0-2) % Lymph # (Auto) 2.4 (1.2-4.9) X10*3/uL [place] # (Auto) 0.6 (0.1-1.2) X10*3/uL Eos # (Auto) 0.4 (0.0-0.4) X10*3/uL Baso # (Auto) 0.0 (0.0-0.2) X10*3/uL Abs Immat Gran (auto) 0.03 (0.00-0.03) X10*3/uL Absolute Neuts (auto) 4.3 (2.0-8.3) x10*3/uL Absolute Nucleated RBC 0.000 (0.0-0.012) X10*3/uL Nucleated RBC % (auto) 0.0 (0.0-0.2) /100WBC PT 12.4 (11.1-13.3) SEC INR 1.0 (0.9-1.1) APTT 36.0 (26.0-36.8) SEC Sodium 138 (135-145) mmol/L Potassium 3.7 (3.3-5.1) mmol/L Chloride 100 (96-108) mmol/L Carbon Dioxide 28 (22-29) mmol/L Anion Gap 14 (12-20) BUN 20 H (9-16) mg/dL Creatinine 1.07 (0.5-1.4) mg/dL Estim Creat Clear Calc 77.4 Estimated GFR > 60 Random Glucose 235 H (60-115) mg/dL Calcium 9.9 (8.4-10.2) mg/dL Total Bilirubin 0.8 (0.0-1.0) mg/dL AST 20 (5-37) U/L ALT 43 H (0-40) U/L Alkaline Phosphatase 78 (39-117) U/L Troponin I High Sens 2.8 (<3.5-35.0) ng/L Total Protein 7.7 (6.5-8.0) g/dL Albumin 4.4 (3.5-5.0) g/dL Independent Interpretation I performed an independent interpretation of an: EKG and CT Scan Interpretation: Normal sinus rhythm heart rate 66 beats per minute left axis deviation LVH no acute ST T wave change Radiology Impression Discussion of test interpretation with radiology: I have reviewed the radiologist's reading. Discharge Plan Discharge Clinical Impression: Benign paroxysmal positional vertigo, Extraocular muscle palsy of right eye Patient Disposition: Home, Self-Care Instructions: Benign Paroxysmal Positional Vertigo (ED), Diplopia (ED) Additional Instructions: Care and cautions as advised Medicine for dizziness as prescribed The double which is likely from diabetes involving the right eye muscles Follow with neurologist/ophthalmologic Prescriptions: New meclizine 25 mg tablet 25 mg PO TID PRN (Reason: dizziness) Qty: 20 0RF No Action amlodipine 10 mg tablet 10 mg PO DAILY 90 Days Qty: 90 1RF atorvastatin 40 mg tablet 40 mg PO DAILY 90 Days Qty: 90 1RF metformin 1,000 mg tablet 1,000 mg PO BID 90 Days Qty: 180 1RF carvedilol 25 mg tablet 25 mg PO BID 90 Days Qty: 180 1RF spironolactone 25 mg tablet 25 mg PO DAILY 90 Days Qty: 90 1RF valsartan-hydrochlorothiazide 320-25 mg tablet 1 tab PO DAILY 90 Days Qty: 90 1RF dulaglutide 1.5 mg/0.5 mL pen injector 1.5 mg subcut QWEEK 28 Days Qty: 2 5RF fenofibrate 54 mg tablet 54 mg PO DAILY 90 Days Qty: 90 3RF clonidine HCl 0.2 mg tablet 0.2 mg PO BEDTIME 90 Days Qty: 90 1RF acetaminophen 500 mg tablet 500 - 1,000 mg PO Q6H PRN (Reason: pain) Qty: 30 0RF cholecalciferol (vitamin D3) 50 mcg (2,000 unit) capsule 50 mcg PO DAILY 90 Days Qty: 90 3RF bisacodyl [Dulcolax (bisacodyl)] 5 mg tablet,delayed release (DR/EC) 20 mg PO ONCE 1 Days Qty: 4 0RF Rx Instructions: Day before procedure, prep day Take 4 tablets by mouth upon awakening followed by large glass of water polyethylene glycol 3350 [Miralax] 17 gram/dose powder 238 g PO ONCE 1 Days Qty: 238 0RF Rx Instructions: Take as directed by mouth the day before your procedure. Referrals: Rc Vu [Physician] - Erma Peterson MD [Physician] - Stand Alone Forms: Work/School Release Interventions: ED Discharge Assessment Last Done: 07/06/23 23:17 Discharge Date/Time: 07/06/23 23:18 Print Language: Belgian
--- NOTE | 2023-07-06 15:06 | ECG_ITS ---
Test Reason : DIZZINESS Blood Pressure : / mmHG Vent. Rate : 066 BPM Atrial Rate : 066 BPM P-R Int : 196 ms QRS Dur : 116 ms QT Int : 408 ms P-R-T Axes : 029 -43 020 degrees QTc Int : 427 ms Normal sinus rhythm Left axis deviation Left ventricular hypertrophy with QRS widening ( R in aVL , Zeb product ) Abnormal ECG No previous ECGs available Referred By: Vincenzo Cox Electronically Signed By:LULU PAYNE MD
[2023-07-06 15:20] LABS: MANUAL DIFF FLAG NO
[2023-07-06 15:22] LABS: Basophils Percent Auto 0.4 % (0-2); Eosinophils Absolute Auto 0.4 X10*3/uL (0.0-0.4); Eosinophils Percent Auto 4.6 % (0-4); Hematocrit 43.8 % (42.0-52.0); Hemoglobin 15.3 g/dl (14.0-18.0); Imm Gran Abs Auto 0.03 X10*3/uL (0.00-0.03); Imm Gran Pct Auto 0.4 % (0.0-0.4); Lymphocytes Absolute Auto 2.4 X10*3/uL (1.2-4.9); Mean Corpuscular HGB Conc 34.9 g/dl (31.0-36.0); Mean Corpuscular Hemoglobin 30.4 pg (27.0-33.0); Mean Corpuscular Volume 87.1 fL (80.0-98.0); Mean Platelet Volume 9.7 fL (9.4-12.4); Monocytes Absolute Auto 0.6 X10*3/uL (0.1-1.2); Monocytes Percent Auto 7.4 % (2-11); Neutrophils Absolute Auto 4.3 x10*3/uL (2.0-8.3); Neutrophils Percent Auto 56.2 % (45-73); Platelet Count 218 X10*3/uL (160-400); Red Blood Count 5.03 X10*6/uL (4.60-5.80); Red Cell Distribution Width 12.2 % (11.0-16.0); White Blood Count 7.7 X10*3/uL (4.8-10.8)
[2023-07-06 15:28] LABS: Prothrombin Time 12.4 SEC (11.1-13.3)
[2023-07-06 15:53] LABS: Alanine Aminotransferase 43 U/L (0-40); Albumin Level 4.4 g/dL (3.5-5.0); Alkaline Phosphatase 78 U/L (39-117); Anion Gap 14 (12-20); Aspartate Amino Transferase 20 U/L (5-37); Bilirubin Total 0.8 mg/dL (0.0-1.0); Blood Urea Nitrogen 20 mg/dL (9-16); Calcium 9.9 mg/dL (8.4-10.2); Carbon Dioxide 28 mmol/L (22-29); Chloride 100 mmol/L (96-108); Creatinine Clr Calc Pharmacy 77.4; Estimated Glomerular Filt Rate > 60; Glucose Random 235 mg/dL (60-115); Potassium 3.7 mmol/L (3.3-5.1); Sodium 138 mmol/L (135-145); Total Protein 7.7 g/dL (6.5-8.0)
[2023-07-06 16:00] LABS: Troponin-I High Sensitivity 2.8 ng/L (<3.5-35.0)
[2023-07-06 16:11] VITALS: BP 170/90; PULSE 69; RESP 16; TEMP 36.7; O2SAT 97
[2023-07-06] MEDS: Meclizine HCl 25 MG TABLET 50 MG PO (17:44)
[2023-07-06 18:00] VITALS: BP 155/79; PULSE 63; RESP 18; TEMP 36.6; O2SAT 96
[2023-07-06] MEDS: diphenhydrAMINE HCL 50 MG/ML VIAL IVPUSH (19:38)
[2023-07-06] MEDS: methylPREDNISolone Sod Succ 125 MG/2 ML VIAL IVPUSH (19:38)
[2023-07-06] MEDS: iohexoL 350 MG/ML 100 ML INFUS..BTL 70 ML IV (20:06)
[2023-07-06 20:49] VITALS: BP 150/87; PULSE 62; RESP 14; TEMP 36.7; O2SAT 97
[2023-07-06 23:10] VITALS: BP 148/82; PULSE 71; RESP 12; TEMP 36.8; O2SAT 93
[2023-07-06 23:17] VITALS: BP 148/82; PULSE 71; RESP 12; TEMP 36.8; O2SAT 93
== END 2023-07-06 23:18 | disposition home or self-care (01) ==
PROVIDERS: Physician Assistant; Emergency Provider Internal Medicine; PCP Internal Medicine
DX: H81.13 Benign paroxysmal vertigo, bilateral (principal); H49.881 Other paralytic strabismus, right eye; R94.31 Abnormal electrocardiogram [ECG] [EKG]; M54.2 Cervicalgia; Z79.899 Other long term (current) drug therapy; Z51.81 Encounter for therapeutic drug level monitoring
CPT/HCPCS: 36415; 70450; 70496; 70498; 80053; 84484; 85025; 85610; 85730; 93005; 96374; 96375; 99284; J1200; J2919; Q9967

== ENCOUNTER → 2023-07-06 15:06 | Outpatient (BNV) | payer OTHER, SELFPAY | PROVIDERS: Emergency Provider Internal Medicine; PCP Internal Medicine; Visit Provider Internal Medicine Cardiovascular Disease | DX: R94.31 Abnormal electrocardiogram [ECG] [EKG] (principal) | CPT/HCPCS: 93010 ==

== ENCOUNTER 2023-07-09 08:12 | Outpatient (AMB) | payer OTHER, SELFPAY ==
--- NOTE | 2023-07-09 08:39 | MHC.PC.OV ---
Vital Signs 07/09/23 08:41 Height 5 ft 9 in Weight 180 lb BMI 26.6 BP 140/76 H Blood Pressure Location Lt brachial Position Sitting Pulse 70 Pulse Source Pulse Oximeter Pulse Oximetry (%) 97 Oxygen Delivery Method Room Air Intake Visit Reasons: double vision, vertigo, HTN, ER f/u 07/05 [facility] Intake Note: Patient is here to follow-up after a visit the emergency department at [facility] on 07/06/23 Salvager Helper Required: No Client Account Manager: Present Accompanied by: Spouse Allergies NSAIDS (Non-Steroidal Anti-Inflamma [NSAIDS (NON-STEROIDAL ANTI-INFLAMMA] Allergy (Severe, Verified 08/07/23 12:07) ASPIRIN ALLERGY...SWELLING AND HIVES aspirin [ASPIRIN] Allergy (Unknown, Verified 08/07/23 12:07) SWELLING/HIVES Penicillins [PENICILLINS] Allergy (Unknown, Verified 08/07/23 12:07) SWELLING/HIVES seafood Allergy (Unknown, Verified 08/07/23 12:07) Unknown Medication List - Last Reconciled 07/09/23 by Myles Ortega MD acetaminophen 500 - 1,000 mg (1 - 2 x 500 mg) PO Q6H PRN amlodipine 10 mg PO DAILY 90 days atorvastatin 40 mg PO DAILY 90 days bisacodyl (Dulcolax (bisacodyl)) 20 mg (4 x 5 mg) PO ONCE 1 day carvedilol 25 mg PO BID 90 days cholecalciferol (vitamin D3) 50 mcg PO DAILY 90 days clonidine HCl 0.2 mg PO BEDTIME 90 days fenofibrate 54 mg PO DAILY 90 days meclizine 25 mg PO TID PRN metformin 1,000 mg PO BID 90 days polyethylene glycol 3350 (Miralax) 238 grams PO ONCE 1 day spironolactone 25 mg PO DAILY 90 days tirzepatide (Mounjaro) 5 mg (0.5 mL) subcut QWEEK valsartan-hydrochlorothiazide 320-25 mg 1 tab PO DAILY 90 days Tobacco use date assessed: 07/09/23 Dental Screening Dental Screen Date: 03/20/23 HPI double vision, vertigo, HTN, ER f/u 07/05 [facility] [place] HPI Details Patient comes in today for his [facility] follow-up visit He went to the ER a few days ago for recurrent/frequent dizziness Workups done in the hospital, including labs, head CT and CTA of the head and neck, all came back negative/normal It was initially thought that he had paroxysmal vertigo but on exam he was noted to have some palsy of the medial rectus muscle of the right eye This was thought to be due to his diabetes He was prescribed some meclizine PRN for symptomatic relief and instructed to follow up with his PCP MYLES and advised that he may also need to see Neurology and Ophthalmology for further evaluation Patient states that he currently feels okay and has not had any recurrence of his dizziness since his ER visit a few days ago He denies any headaches Denies any chest pains, no shortness of breath No nausea /vomiting, no abdominal pain No change in bowel habits noted Needs his amlodipine Rx refilled Would also like to know how his left hand x-ray done recently came out and if it showed the presence of the foreign body in his hand that he was concerned about PFSH Medical History Extraocular muscle palsy of right eye Vitamin D deficiency Overweight (BMI 25.0-29.9) Degenerative joint disease of right knee Pure hypercholesterolemia Diabetes mellitus Benign essential hypertension History of primary malignant neoplasm of urinary bladder Surgical History H/O colonoscopy History of bladder surgery History of repair of right rotator cuff Previous back surgery Family History Mother High blood pressure Diabetes Father Cancer Social History Housing: Apartment Alcohol intake: former Patient Tobacco Use Status: Never used Tobacco e-Cigarette/Vaping Use: Never Used Second Hand Smoke Exposure: No service: No Current occupational status: employed Current occupational exposures/hazards: No Cognitive needs: No Hearing needs: No Vision needs: Yes (reading glasses) Questionnaire Thrive Questionnaire Date Thrive assessed: 06/25/23 ROSA-7 AMB Questionnaire ROSA-7 Date ROSA - 7 assessed: 03/20/23 Source: Developed by Drs. Yonas Gay, Ashlie Wagner, Ck Urbano and colleagues, with an educational jennifer from [employer]. Review of Systems Const Denies chills, Denies fatigue, Denies fever(s) and Denies headache(s) ENT Denies dysphagia, Reports dizziness (occurred a few days ago and have not recurred since), Denies otalgia, Denies headache(s), Denies neck pain, Denies odynophagia and Denies sore throat Card Denies chest pain, Denies rapid heart rate, Denies irregular heart rhythm, Denies palpitations and Denies dyspnea Resp Denies chest congestion, Denies cough, Denies dyspnea and Denies wheezing GI Denies abdominal pain, Denies constipation, Denies dysphagia, Denies heartburn, Denies diarrhea, Denies nausea, Denies odynophagia and Denies vomiting Denies hematuria, Denies difficulty urinating, Denies dysuria and Denies urinary frequency Musc Details: (+) pain over the dorsum of the left hand - see HPI Denies back pain, Denies arthralgias and Denies neck pain Skin/Breast Denies rash Neuro Reports dizziness (occurred a few days ago and have not recurred since) and Denies headache(s) Endo Denies fatigue and Denies palpitations Aller/Immun Denies wheezing Physical exam (Primary Care) Vital Signs: Last Vital Signs Pulse 70 07/09/23 08:41 BP 140/76 H 07/09/23 08:41 Pulse Ox 97 07/09/23 08:41 Oxygen Delivery Method Room Air 07/09/23 08:41 BMI result Body Mass Index 26.6 Tobacco/Smoking Status: Tobacco use Status Tobacco use date assessed 07/09/23 07/09/23 08:47 Patient Tobacco Use Status Never used Tobacco 07/09/23 08:47 e-Cigarette/Vaping Use Never Used 07/09/23 08:47 Thrive Assessment: Date of Thrive Assessment Date Thrive assessed 06/25/23 07/09/23 08:47 Const General: no acute distress and alert HENMT Throat: Yes posterior oropharynx normal and Yes tonsils normal (no TP congestion) Neck Neck: Yes no lymphadenopathy and Yes supple Thyroid: Thyroid normal Resp Auscultation: clear to auscultation bilaterally, no rales and no wheezes Cardio Rate: regular rate Rhythm: regular rhythm Heart sounds: no murmurs GI Palpation (GI): Soft to palpation and nontender Auscultation: normal bowel sounds General: Yes no CVA tenderness Back/Spine/Pelvis Back: no CVA tenderness Skin Rashes: no rashes Extrem General: Yes no clubbing, cyanosis or edema Left upper extremity: hand Details: tenderness Location: of the dorsal hand Assessment and Plan Assessment & Plan (1) Extraocular muscle palsy of right eye: Comment: medial rectus muscle Code(s): 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 Plan: Will refer him to neurology for further evaluation and management Will also refer him to ophthalmology for further evaluation and management (2) Foreign body of left hand: Code(s): S60.552A - Superficial foreign body of left hand, initial encounter Qualifiers: Encounter type: sequela Qualified Code(s): S60.552S - Superficial foreign body of left hand, sequela Plan: Will refer patient to surgery for further evaluation of a lodged foreign object in his left hand, which was confirmed on x-rays done a couple of weeks ago, and surgical excision if appropriate (3) Benign essential hypertension: Comment: Reviewed sx-no chest pain, dizziness, nausea vomiting , headaches or visual change Code(s): I10 - Essential (primary) hypertension Plan: Reinforced low sodium diet - goal is systolic BP of at least 120 to 130 mm or less Continue Amlodipine 10 mg QD (Rx refilled), Spironolactone 25 mg QD, Carvedilol 25 mg BID, Valsartan-HCT 320-25 mg QD and Clonidine 0.2 mg QHS He is reminded to continue monitoring his blood pressure regularly (4) Diabetes mellitus: Code(s): E11.9 - Type 2 diabetes mellitus without complications Qualifiers: Diabetes mellitus type: type 2 Diabetes mellitus terminal make up operator insulin use: without long-term use Diabetes mellitus complication status: with hyperglycemia Qualified Code(s): E11.65 - Type 2 diabetes mellitus with hyperglycemia Plan: HgbA1c was at 8.2% on his labs done earler this month (was at 10.7% back in February 2024) - goal is <7.0% Continue Metformin 1000 mg BID and Trulicity 1.5 mg SQ once a week (5) Pure hypercholesterolemia: Code(s): E78.00 - Pure hypercholesterolemia, unspecified Plan: Reinforced low cholesterol diet Continue Atorvastatin 40 mg QD and Fenofibrate 54 mg QD Plan Follow up as scheduled in September 2023 Orders: Referrals General Surgery Referral S60.552A - Superficial foreign body of left hand, initial encounter Ophthalmology Referral 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 Neurology Referral 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, R42 - Dizziness and giddiness Medications: Refilled amlodipine 10 mg PO DAILY 90 tabs 1RF 90 days I10 - Essential (primary) hypertension Coding Level of Care Code Est Pt Level 4 (15326) Diagnoses Extraocular muscle palsy of right eye H49.9 Foreign body of left hand, sequela S60.552S Encounter type: sequela Benign essential hypertension I10 Type 2 diabetes mellitus with hyperglycemia, without long-term current use of insulin E11.65 Diabetes mellitus type: type 2 Diabetes mellitus terminal make up operator insulin use: without long-term use Diabetes mellitus complication status: with hyperglycemia Pure hypercholesterolemia E78.00
[2023-07-09 08:41] VITALS: BP 140/76; PULSE 70; O2SAT 97; BMI 26.6
== END 2023-07-09 09:30 | disposition home or self-care (01) ==
PROVIDERS: PCP Internal Medicine; Visit Provider Internal Medicine
DX: H49.9 Unspecified paralytic strabismus (principal); S60.55 Superficial foreign body of hand; I10 Essential (primary) hypertension; E11.65 Type 2 diabetes mellitus with hyperglycemia; E78.00 Pure hypercholesterolemia, unspecified
CPT/HCPCS: 99214

== ENCOUNTER 2023-07-14 10:49 | Outpatient (AMB) | payer OTHER, SELFPAY ==
--- NOTE | 2023-07-14 10:58 | A.OFFVIS_ITS ---
Vital Signs 07/14/23 11:07 Height 5 ft 9 in Weight 182 lb BMI 26.9 BP 133/70 Blood Pressure Location Rt brachial Position Sitting Pulse 65 Intake Visit Reasons: Foreign body Lt hand Intake Note: Patient referred by PCP Dr. Ortega for foreign body on lt hand. Present for 1yr. 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 He sustained some sort of metallic foreign body into his dorsum left hand at work approximate year ago. He is becoming more symptomatic. He presents here for further evaluation. Chart was reviewed and patient evaluated [facility] Medical History Extraocular muscle palsy of right eye Vitamin D deficiency Overweight (BMI 25.0-29.9) Degenerative joint disease of right knee Pure hypercholesterolemia Diabetes mellitus Benign essential hypertension History of primary malignant neoplasm of urinary bladder Surgical History History of bladder surgery History of repair of right rotator cuff Previous back surgery Family History Mother High blood pressure Diabetes Father Cancer Social History Housing: Apartment Alcohol intake: former Patient Tobacco Use Status: Never used Tobacco e-Cigarette/Vaping Use: Never Used Second Hand Smoke Exposure: No service: No Current occupational status: employed Current occupational exposures/hazards: No Cognitive needs: No Hearing needs: No Vision needs: Yes (reading glasses) Physical Exam Vital Signs: Last Vital Signs Pulse 65 07/14/23 11:07 BP 133/70 07/14/23 11:07 BMI result Body Mass Index 26.9 Extrem Other: Dorsum left mid hand demonstrates a old scar/puncture site. No obvious foreign bodies palpated. The hand is grossly neurovascularly intact. Assessment & Plan Assessment & Plan (1) Foreign body of left hand: Code(s): S60.552A - Superficial foreign body of left hand, initial encounter Category: Surgical Plan The foreign body in question is quite small and in fact I am having difficulty identifying it. Because this is symptomatic for the patient, patient will undergo formal hand surgeon evaluation with Dr. Flores here at [place]. Arrangements were made for this. Coding Level of Care Code New Pt Level 4 (66250) Diagnoses Foreign body of left hand S60.552A
[2023-07-14 11:07] VITALS: BP 133/70; PULSE 65; BMI 26.9
== END 2023-07-14 11:14 | disposition home or self-care (01) ==
PROVIDERS: PCP Internal Medicine; Referring Provider Internal Medicine; Visit Provider Surgery
DX: S60.552A Superficial foreign body of left hand, initial encounter (principal)
CPT/HCPCS: 99204

== ENCOUNTER → 2023-07-14 10:49 | Outpatient (BNVA) | payer OTHER, SELFPAY | PROVIDERS: PCP Internal Medicine; Referring Provider Internal Medicine; Visit Provider Surgery ==

== ENCOUNTER 2023-07-22 09:11 | Day surgery (SDC) | payer OTHER, SELFPAY ==
--- NOTE | 2023-07-21 12:21 | P.CONAN_ITS ---
Documented by User: Haven Kohli NP 07/21/23 12:23 HPI - Anesthesia Eval Consult details Narrative: 63yo [place] for [place] [facility] [place] with benign vertigo. Rx for meclazine. F/u'd with PCP since. Anesthesia Pre-Procedure Meds Is the patient on any of the following meds?: GLP1/DPP4 PMFSH Active Problems Active Problems: All Active Problems Extraocular muscle palsy of right eye (Acute) Foreign body of left hand (Acute) Dizziness (Acute) Left hand pain (Acute) Abdominal wall contusion (Acute) Chest wall contusion (Acute) Colon cancer screening (Acute) Annual physical exam (Acute) Vitamin D deficiency (Acute) Overweight (BMI 25.0-29.9) (Acute) Degenerative joint disease of right knee (Acute) Pure hypercholesterolemia (Acute) Diabetes mellitus (Acute) Benign essential hypertension (Acute) Past Medical History Medical History Extraocular muscle palsy of right eye Vitamin D deficiency Overweight (BMI 25.0-29.9) Degenerative joint disease of right knee Pure hypercholesterolemia Diabetes mellitus Benign essential hypertension History of primary malignant neoplasm of urinary bladder Family History Family History Mother High blood pressure Diabetes Father Cancer Surgical History Surgical History H/O colonoscopy History of bladder surgery History of repair of right rotator cuff Previous back surgery Social History Social History Housing: Apartment Alcohol intake: former Patient Tobacco Use Status: Never used Tobacco e-Cigarette/Vaping Use: Never Used Second Hand Smoke Exposure: No Use of substances other than those prescribed or required for medical reasons: No Are you DNR?: No Advance Directives: No Advance Directives Information Provided: Yes service: No Current occupational status: employed Current occupational exposures/hazards: No Cognitive needs: No Hearing needs: No Vision needs: Yes (reading glasses) Meds Allergies Allergy/AdvReac Type Severity Reaction Status Date / Time NSAIDS (Non-Steroidal Allergy Severe ASPIRIN Verified 07/22/23 10:01 Anti-Inflamma ALLERGY...SWELLING [NSAIDS (NON-STEROIDAL AND HIVES ANTI-INFLAMMA] aspirin [ASPIRIN] Allergy Unknown SWELLING/HI Verified 07/22/23 10:01 VES Penicillins [PENICILLINS] Allergy Unknown SWELLING/HI Verified 07/22/23 10:01 VES seafood Allergy Unknown Unknown Verified 07/22/23 10:01 Exam Narrative Narrative: EKG 06/2023 Vent. Rate : 066 BPM Atrial Rate : 066 BPM P-R Int : 196 ms QRS Dur : 116 ms QT Int : 408 ms P-R-T Axes : 029 -43 020 degrees QTc Int : 427 ms Normal sinus rhythm Left axis deviation Left ventricular hypertrophy with QRS widening ( R in aVL , [place] product ) Abnormal ECG No previous ECGs available Assessment and Plan Assessment Anesthesia Assessment: Chart Reviewed Documented by User: Roxy Santamaria MD 07/22/23 10:56 HPI - Anesthesia Eval Consult details Narrative: 63yo M for [place] [facility] [place] with benign vertigo. Rx for meclizine. F/u'd with PCP since. Blood sugar today 241. Usually in 120s. Has been off mounjaro since 07/14/23. No metformin Anesthesia Pre-Procedure Meds Is the patient on any of the following meds?: GLP1/DPP4 (Mounjaro last dose 07/14/23) If yes to any meds - educate patient: Pt education - increased risk of aspiration and/or euvolemic DKA [facility] Past Medical History Medical History Extraocular muscle palsy of right eye Vitamin D deficiency Overweight (BMI 25.0-29.9) Degenerative joint disease of right knee Pure hypercholesterolemia Diabetes mellitus Benign essential hypertension History of primary malignant neoplasm of urinary bladder Family History Family History Mother High blood pressure Diabetes Father Cancer Family history of problems with anesthesia: No Surgical History Surgical History H/O colonoscopy History of bladder surgery History of repair of right rotator cuff Previous back surgery History of Problems with Anesthesia: No Social History Social History Housing: Apartment Alcohol intake: former Patient Tobacco Use Status: Never used Tobacco e-Cigarette/Vaping Use: Never Used Second Hand Smoke Exposure: No Use of substances other than those prescribed or required for medical reasons: No Are you DNR?: No Advance Directives: No Advance Directives Information Provided: Yes service: No Current occupational status: employed Current occupational exposures/hazards: No Cognitive needs: No Hearing needs: No Vision needs: Yes (reading glasses) Meds Allergies Allergy/AdvReac Type Severity Reaction Status Date / Time NSAIDS (Non-Steroidal Allergy Severe ASPIRIN Verified 07/22/23 10:01 Anti-Inflamma ALLERGY...SWELLING [NSAIDS (NON-STEROIDAL AND HIVES ANTI-INFLAMMA] aspirin [ASPIRIN] Allergy Unknown SWELLING/HI Verified 07/22/23 10:01 VES Penicillins [PENICILLINS] Allergy Unknown SWELLING/HI Verified 07/22/23 10:01 VES seafood Allergy Unknown Unknown Verified 07/22/23 10:01 Exam Height,Weight and Vital Signs: Height 5 ft 9 in Weight 79.832 kg Vital Signs Temp Pulse Resp BP Pulse Ox O2 Del Method 07/22/23 10:10 97.6 F 63 15 150/83 H 96 Room Air Pertinent Lab Results Pertinent Lab Results: Lab Results 07/22/23 Range/Units 09:57 POC Glucose 241 H (60-115) mg/dL Airway Mallampati Class: II TM Dist: >3cm Neck ROM: Full Loose/Missing/Broken Teeth: Yes (2 molars missing. Denies broken or loose teeth) Heart: RRR Lungs: CTAB Assessment and Plan Assessment Anesthesia Assessment: Anesthesia Plan Discussed and Chart Reviewed Final Anesthetic Review Family History of Problems with Anesthesia: No History of Problems with Anesthesia: No NPO: Yes ASA Class: III Final Preanesthetic Review: No Changes in Pt Med Stat, Meds/Allgs Chart Reviewed, Consent Obtained/Reviewed and Anes Risks/Benef Reviewed Patient Risk: Intermediate Procedure Risk: Low Assessment/Block/Sedation in SS: Assess/Block/Sedation-SS Anesthetic Plan Anesthetic Plan: MAC: and TIVA Disposition: Standard PACU
[2023-07-22 10:02] VITALS: BMI 26.0
[2023-07-22 10:02] LABS: Glucose, Whole Blood 241 mg/dL (60-115)
--- NOTE | 2023-07-22 10:04 | MHC.SHP ---
Pre-Procedural Eval Section A - 24 Hr Update-Section A only Date of Service: 07/22/23 Section B - Complete if H&P > 30 days Chief Complaint: screening Relevant Family History (Specify if Yes): No Relevant Social History: None Present Medications: see Short Stay Collaborative assessment Medical History: Significant History (Extraocular muscle palsy of right eye Vitamin D deficiency Overweight (BMI 25.0-29.9) Degenerative joint disease of right knee Pure hypercholesterolemia Diabetes mellitus Benign essential hypertension History of primary malignant neoplasm of urinary bladder) History of Previous Operations: Relevant previous surgery/procedure and date(s) (H/O colonoscopy History of bladder surgery History of repair of right rotator cuff Previous back surgery) Allergies: Allergies Allergy/AdvReac Type Severity Reaction Status Date / Time NSAIDS (Non-Steroidal Allergy Severe ASPIRIN Verified 07/22/23 10:01 Anti-Inflamma ALLERGY...SWELLING [NSAIDS (NON-STEROIDAL AND HIVES ANTI-INFLAMMA] aspirin [ASPIRIN] Allergy Unknown SWELLING/HI Verified 07/22/23 10:01 VES Penicillins [PENICILLINS] Allergy Unknown SWELLING/HI Verified 07/22/23 10:01 VES seafood Allergy Unknown Unknown Verified 07/22/23 10:01 Review of Systems Sugical H&P ROS: Negative: Constitution, Cardiovascular, Respiratory, Neurological, Psychiatric, Hem-Onc, Allergic/Immunologic, Gastrointestinal, Genitourinary, Musculoskeletal, Integumentary, Endocrine and Eyes/Ears/Nose/Throat Exam Surgical H&P Exam: Normal: HEENT, Normal: Heart, Normal: Lungs, Normal: Extremities, Normal: Abdomen, Normal: Skin and Normal: Neurological Plan Diagnosis/Plan: Unchanged I have reviewed the history and physical and performed a pertinent physical examination on my patient. No changes have occurred unless specified. Time Spent With Patient Time: Total time managing care of this patient today ____ minutes.
[2023-07-22 10:10] VITALS: BP 150/83; PULSE 63; RESP 15; TEMP 36.4; O2SAT 96
[2023-07-22] MEDS: Lactated Ringers 1,000 ML 100 ML IVCONT (10:29)
--- NOTE | 2023-07-22 11:15 | HO.OPN-COLON ---
Colonoscopy Operative Note Operative Note Date of Service: 07/22/23 Narrative: Operative Information Procedure Description: Colonoscopy Indication: screening Anesthesia: MAC COLONOSCOPY Instrument: Olympus variable stiffness pediatric scope 190L Colonoscopy Monitoring: Vital signs and clinical assessment, continuous EKG monitoring, Pulse oximetry, Carbon Dioxide monitoring and blood pressure monitoring were done throughout the procedure. Colon withdrawal time was 10 minutes. Procedure: The patient was placed in the left lateral decubitis position and pre-procedure medications were administered. After a digital rectal examination of the ano-rectum, the video colonoscope was inserted into the rectum and advanced through the colon to the cecum/TI. The colonoscope was slowly withdrawn in a retrograde panoramic fashion and the colon mucosa was carefully examined including a retroflexed view of the rectum. Findings and interventions are described below. Procedure Difficulty: easy Findings: Terminal Ileum-normal Cecum:normal Right sided retroflexion- normal Ascending Colon: normal Transverse Colon -normal Descending Colon:normal Sigmoid Colon: moderate diverticulosis Rectum: Retroflexion with small internal hemorrhoids seen, grade I Anorectum - normal Intervention: none Colon preparation: [place] Bowel Preparation Scale Right colon; 1-2 Transverse colon: 2 Left colon; 2 (0 = Unprepared colon segment with mucosa not seen due to solid stool that cannot be cleared. 1 = Portion of mucosa of the colon segment seen, but other areas of the colon segment not well seen due to staining, residual stool and/or opaque liquid. 2 = Minor amount of residual staining, small fragments of stool and/or opaque liquid, but mucosa of colon segment seen well. 3 = Entire mucosa of colon segment seen well with no residual staining, small fragments of stool or opaque liquid) Impression and Post Procedure Diagnosis: diverticulosis internal hemorrhoids Plan: High fiber diet leaflet Avoid straining at stool, epsom salts and sitz bath, anusol supps or cream Repeat Colonoscopy in 5 years due to fair prep on right or earlier if clinically indicated Above findings were reviewed with the patient and relevant handouts were provided if indicated.
[2023-07-22 11:50] VITALS: BP 117/78; PULSE 59; RESP 16; TEMP 36.1; O2SAT 98
[2023-07-22 12:06] VITALS: BP 120/81; PULSE 59; RESP 18; TEMP 36.1; O2SAT 98
== END 2023-07-22 12:39 | disposition home or self-care (01) ==
PROVIDERS: PCP Internal Medicine; Visit Provider Internal Medicine Gastroenterology
PROC: 0DJD8ZZ Inspection of Lower Intestinal Tract, Via Natural or Artificial Opening Endoscopic (ICD-10-PCS; CPT 45378; principal; 2023-07-22 11:30)
DX: Z12.11 Encounter for screening for malignant neoplasm of colon (principal); K57.30 Diverticulosis of large intestine without perforation or abscess without bleeding; K64.0 First degree hemorrhoids; I10 Essential (primary) hypertension; E11.9 Type 2 diabetes mellitus without complications; Z88.0 Allergy status to penicillin; Z88.6 Allergy status to analgesic agent
CPT/HCPCS: 45378; 82947; J2704

== ENCOUNTER → 2023-07-22 09:11 | Outpatient (BNV) | payer OTHER, SELFPAY | PROVIDERS: PCP Internal Medicine; Visit Provider Internal Medicine Gastroenterology | DX: Z12.11 Encounter for screening for malignant neoplasm of colon (principal); K57.30 Diverticulosis of large intestine without perforation or abscess without bleeding; K64.0 First degree hemorrhoids; Z91.199 Patient's noncompliance with other medical treatment and regimen due to unspecified reason | CPT/HCPCS: 45378 ==

== ENCOUNTER 2023-08-07 12:01 | Outpatient (AMB) | payer OTHER, SELFPAY ==
[2023-08-07 12:03] VITALS: BP 207/92; PULSE 66; BMI 26.7
--- NOTE | 2023-08-07 12:03 | A.OFFVIS_ITS ---
Vital Signs 08/07/23 12:03 08/07/23 12:33 Height 5 ft 9 in Weight 180 lb 12.465 oz BMI 26.7 BP 207/92 H 148/90 H Blood Pressure Location Lt brachial Lt brachial Position Sitting Sitting Pulse 66 72 Pulse Source Auscultation Intake Visit Reasons: S/P [place] Intake Note: Patient presents to in office visit today in follow up s/p colonoscopy. CC: Patient reports doing well and denies having any GI concerns today. 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 Allergies NSAIDS (Non-Steroidal Anti-Inflamma [NSAIDS (NON-STEROIDAL ANTI-INFLAMMA] Allergy (Severe, Verified 08/07/23 12:07) ASPIRIN ALLERGY...SWELLING AND HIVES aspirin [ASPIRIN] Allergy (Unknown, Verified 08/07/23 12:07) SWELLING/HIVES Penicillins [PENICILLINS] Allergy (Unknown, Verified 08/07/23 12:07) SWELLING/HIVES seafood Allergy (Unknown, Verified 08/07/23 12:07) Unknown HPI Comments Details: A [age]-year-old male follows up after recent screening colonoscopy-his is present He is HTN- says he took his medication- he had a recent change- sometimes it is elevated No CP, dizziness, headache or vision change- He monitors at home-last night 147/89 He tolerated procedures well Discuss procedure report, and recommendd No nausea, vomiting, abdominal pain, hematemesis, fever or chills PFS Medical History (Updated 08/07/23 @ 13:42 by Nivia Neil PA-C) Extraocular muscle palsy of right eye Vitamin D deficiency Overweight (BMI 25.0-29.9) Degenerative joint disease of right knee Pure hypercholesterolemia Diabetes mellitus Benign essential hypertension History of primary malignant neoplasm of urinary bladder Surgical History H/O colonoscopy History of bladder surgery History of repair of right rotator cuff Previous back surgery Family History Mother High blood pressure Diabetes Father Cancer Social History Housing: Apartment Alcohol intake: former Patient Tobacco Use Status: Never used Tobacco e-Cigarette/Vaping Use: Never Used Second Hand Smoke Exposure: No service: No Current occupational status: employed Current occupational exposures/hazards: No Cognitive needs: No Hearing needs: No Vision needs: Yes (reading glasses) Review of Systems Const All systems reviewed & are unremarkable except as noted in HPI and below Card Denies chest pain, Denies chest pain with activity, Denies diaphoresis, Denies rapid heart rate, Denies lightheadedness, Denies dyspnea and Denies dyspnea on exertion Resp Denies cough, Denies dyspnea and Denies dyspnea on exertion GI Denies abdominal pain Physical Exam Vital Signs: Last Vital Signs Pulse 72 08/07/23 12:33 BP 148/90 H 08/07/23 12:33 BMI result Body Mass Index 26.7 Const General: cooperative, healthy appearing, comfortable and no acute distress Orientation/consciousness: patient oriented x3 Limitations: no limitations Cardio Rate: regular rate Rhythm: regular rhythm Heart sounds: S1 normal heart sound present and S2 normal heart sound present GI Palpation (GI): Soft to palpation and nontender Auscultation: normal bowel sounds Neuro General: patient oriented x3 Extrem General: Yes full ROM Psych Appearance: grossly normal and well kempt Mental Status: mental status grossly normal Speech and movement: Normal speech and movement present and Clear speech present Affect: normal affect Attitude: cooperative Thought process: Normal thought process present Thought content: Normal thought content present Insight: Good insight present (Psych) Judgement: Good judgement present (Psych) Results Reviewed Results Reviewed: Impression and Post Procedure Diagnosis: diverticulosis internal hemorrhoids Plan: High fiber diet leaflet Avoid straining at stool, epsom salts and sitz bath, anusol supps or cream Repeat Colonoscopy in 5 years due to fair prep on right or earlier if clinically indicated Assessment & Plan Assessment & Plan (1) Diverticulosis of colon: Code(s): K57.30 - Diverticulosis of large intestine without perforation or abscess without bleeding Category: Medical Plan: ER protocol (2) Hemorrhoids: Code(s): K64.9 - Unspecified hemorrhoids Category: Medical Plan: Avoid straining Maintain high-fiber diet (3) Benign essential hypertension: Comment: Reviewed sx-no chest pain, dizziness, nausea vomiting , headaches or visual change Code(s): I10 - Essential (primary) hypertension Category: Medical Plan: Recheck BP within range Plan Repeat asymptomatic colonoscopy 5 years due to inadequate prep Diverticulosis/diverticulitis ER protocol Foods to avoid such as nuts, seeds, corn, ETC Maintain high-fiber diet Encouraged to call questions or concerns Avoid straining with hemorrhoid Patient Instructions: Repeat asymptomatic colonoscopy 5 years due to inadequate prep Diverticulosis/diverticulitis ER protocol Foods to avoid such as nuts, seeds, corn, ETC Maintain high-fiber diet Continue to follow with PCP for hypertension Encouraged to call questions or concerns Avoid straining with hemorrhoid Coding Level of Care Code Est Pt Level 3 (02745) Diagnoses Diverticulosis of colon K57.30 Hemorrhoids K64.9 Benign essential hypertension I10 Time Spent (min) 30
[2023-08-07 12:33] VITALS: BP 148/90; PULSE 72
== END 2023-08-07 12:58 | disposition home or self-care (01) ==
PROVIDERS: PCP Internal Medicine; Visit Provider Physician Assistant
DX: K57.30 Diverticulosis of large intestine without perforation or abscess without bleeding (principal); K64.9 Unspecified hemorrhoids; I10 Essential (primary) hypertension
CPT/HCPCS: 99213

== ENCOUNTER → 2023-08-07 12:01 | Outpatient (BNVA) | payer OTHER, SELFPAY | PROVIDERS: PCP Internal Medicine; Visit Provider Physician Assistant ==

== ENCOUNTER 2023-08-12 12:40 | Outpatient (AMB) | payer OTHER, SELFPAY ==
--- NOTE | 2023-08-12 12:44 | MHC.OFFVIS ---
Vital Signs 08/12/23 12:50 Height 5 ft 9 in Weight 180 lb BMI 26.6 Handedness Right Intake Visit Reasons: Pain in left hand Intake Note: Adilson 63 yr old right hand dominant male presents today for a new problem visit for her left hand pain. Patient reports that he has a piece of metal that has been stuck there for a year. He states that he was working one day and felt something sharp on the dorsal aspect of the hand but there wasn't any blood. Pain is worse when making a fist and when he is working on the machines at work. Allergies NSAIDS (Non-Steroidal Anti-Inflamma [NSAIDS (NON-STEROIDAL ANTI-INFLAMMA] Allergy (Severe, Verified 08/12/23 12:50) ASPIRIN ALLERGY...SWELLING AND HIVES aspirin [ASPIRIN] Allergy (Unknown, Verified 08/12/23 12:50) SWELLING/HIVES Penicillins [PENICILLINS] Allergy (Unknown, Verified 08/12/23 12:50) SWELLING/HIVES seafood Allergy (Unknown, Verified 08/12/23 12:50) Unknown HPI HPI Pain in left hand: Details: Adilson is a 63 year old right hand dominant Diabetic man who presents with complaints of left hand pain. He complains of pain of the back of his left hand for ~1 year now, which is worse when making a fist. He feels there may be something stuck inside his hand. He says this could be a metal pin from his workplace, as while he was working he felt a sharp pain in the back of his hand, but denies seeing any blood. He says he was seen in the ED for this but was told they could not find anything He denies any numbness or tingling. He is a Diabetic, he says this is well-controlled. 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 [facility] Medical History Extraocular muscle palsy of right eye Vitamin D deficiency Overweight (BMI 25.0-29.9) Degenerative joint disease of right knee Pure hypercholesterolemia Diabetes mellitus Benign essential hypertension History of primary malignant neoplasm of urinary bladder Surgical History H/O colonoscopy History of bladder surgery History of repair of right rotator cuff Previous back surgery Family History Mother High blood pressure Diabetes Father Cancer Social History Housing: Apartment Alcohol intake: former Patient Tobacco Use Status: Never used Tobacco e-Cigarette/Vaping Use: Never Used Second Hand Smoke Exposure: No service: No Current occupational status: employed Current occupational exposures/hazards: No Cognitive needs: No Hearing needs: No Vision needs: Yes (reading glasses) Review of Systems Const All systems reviewed & are unremarkable except as noted in HPI and below Physical Exam Vital Signs: BMI result Body Mass Index 26.6 Const General: cooperative, healthy appearing and no acute distress Orientation/consciousness: patient oriented x3 HEENT Head: Yes normocephalic and Yes atraumatic Eyes EOM: EOMs intact bilaterally Resp Effort & Inspection: normal respiratory effort and able to speak in complete sentences Cardio Jugular venous distension: no JVD Skin General skin exam: turgor normal Rashes: no rashes Neuro General: patient oriented x3 Extrem Other: Evaluation of Left Upper Extremity: The patient is alert, oriented, and in no acute distress Neuro: Median, Ulnar, Radial nerves motor and sensory intact and sensation is normal to the tips of all digits Vascular: Cap refill brisk ROM: He can make a fist and extend all his digits. Skin: No lacerations or abrasions. General: No Ecchymosis. No Erythema or evidence of infection. There is a 2mm circular pigmented area at mid aspect in between the 3rd & 4th metacarpal shafts where he reports the foreign body entered There is a palpable mass on the dorsal aspect of his hand, between the 3rd & 4th metacarpal shafts, measuring ~3mm in length. Somewhat subtle. This is best palpable when making a fist, and just proximal to the pigmented area. Radiographs: 3 views of the left hand fro 06/28/23 were reviewed by me today in clinic. They show no fractures or dislocations. He has some early basal joint arthritis. There is a faint linear radiopaque area seen on the lateral view. Unclear whether this may be foreign body. Psych Appearance: grossly normal Affect: normal affect Attitude: cooperative Assessment & Plan Assessment & Plan (1) Foreign body of left hand: Code(s): S60.552A - Superficial foreign body of left hand, initial encounter Category: Surgical Qualifiers: Encounter type: sequela Qualified Code(s): S60.552S - Superficial foreign body of left hand, sequela (2) Diabetes mellitus: Code(s): E11.9 - Type 2 diabetes mellitus without complications Category: Medical Qualifiers: Diabetes mellitus complication status: with hyperglycemia Diabetes mellitus terminal system operator insulin use: without penitentiary use Diabetes mellitus type: type 2 Qualified Code(s): E11.65 - Type 2 diabetes mellitus with hyperglycemia Plan Assessment & Plan: 1. 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 I educated him about this condition I discussed operative and non-operative treatment options The patient would like to proceed with surgery The risks and benefits of operative treatment were discussed with the patient and the patient wishes to proceed with surgery. These risks include, but are not limited to risk of damage to blood vessels, nerves, tendons, infection, recurrence, incomplete relief of preoperative symptoms, persistent pain, possible need for further surgery and the risks associated with regional blocks and anesthesia. The plan is to take the patient to the operating room sometime in the next few weeks for the following procedures: 1. Left hand excision of foreign body, under local All of the preoperative paperwork including the consent was reviewed today. All the patient's questions were answered. The patient understands that they will be contacted by our fruit raiser soon to schedule this procedure He denies blood thinners, asthma, heart, lung, kidney issues He is a Diabetic, his most recent HgA1c was 8.2% on 06/21/23. He says he had an issue with his medication but has returned to taking it as instructed Scribed for Sowmya Flores MD by Sp Ashford, medical assistant dermatology, on 08/12/23 at 1:40 PM, EST. Coding Level of Care Code New Pt Level 4 (44064) Diagnoses Foreign body of left hand, sequela S60.552S Encounter type: sequela Type 2 diabetes mellitus with hyperglycemia, without long-term current use of insulin E11.65 Diabetes mellitus complication status: with hyperglycemia Diabetes mellitus penitentiary insulin use: without penitentiary use Diabetes mellitus type: type 2
[2023-08-12 12:50] VITALS: BMI 26.6
== END 2023-08-12 14:30 | disposition home or self-care (01) ==
PROVIDERS: PCP Internal Medicine; Visit Provider Orthopaedic Surgery
DX: S60.55 Superficial foreign body of hand (principal); E11.65 Type 2 diabetes mellitus with hyperglycemia
CPT/HCPCS: 99204

== ENCOUNTER → 2023-08-12 12:40 | Outpatient (BNVA) | payer OTHER, SELFPAY | PROVIDERS: PCP Internal Medicine; Visit Provider Orthopaedic Surgery ==

== ENCOUNTER 2023-09-27 10:30 | Outpatient (REF) | payer OTHER, SELFPAY ==
[2023-09-27 11:25] LABS: MANUAL DIFF FLAG NO
[2023-09-27 11:57] LABS: Appearance Urine Clear; Color Urine Yellow; Glucose Urine UA Negative (Negative); Leukocyte Esterase Urine Trace (Negative); Nitrite Urine Negative (Negative); PH 6.5 (5.0-9.0); UMIC TRIGGER UACC YES; Urine Blood Negative (Negative); Urine Ketones Negative (Negative); Urine Protein Trace mg/dL (Neg-Trace)
[2023-09-27 12:01] LABS: Bacteria Urine None Seen (None Seen); Hyaline Casts Urine 0-2 /LPF (0-2); RBC Urine 0-2 /HPF (0-2); Squamous Epithelial Cell Urine 0-2 /HPF (0-2); WBC Urine 0-5 /HPF (0-5)
[2023-09-27 12:08] LABS: Estimated Average Glucose 103 mg/dL; Hemoglobin A1c % 5.2 % (<6.0)
[2023-09-27 12:17] LABS: Basophils Percent Auto 0.8 % (0-2); Eosinophils Absolute Auto 0.3 X10*3/uL (0.0-0.4); Eosinophils Percent Auto 6.6 % (0-4); Hematocrit 39.3 % (42.0-52.0); Hemoglobin 13.2 g/dl (14.0-18.0); Imm Gran Abs Auto 0.02 X10*3/uL (0.00-0.03); Imm Gran Pct Auto 0.4 % (0.0-0.4); Lymphocytes Percent Auto 39.2 % (20-40); Mean Corpuscular HGB Conc 33.6 g/dl (31.0-36.0); Mean Corpuscular Hemoglobin 30.6 pg (27.0-33.0); Mean Platelet Volume 9.7 fL (9.4-12.4); Monocytes Absolute Auto 0.5 X10*3/uL (0.1-1.2); Monocytes Percent Auto 9.1 % (2-11); Neutrophils Absolute Auto 2.2 x10*3/uL (2.0-8.3); Neutrophils Percent Auto 43.9 % (45-73); Platelet Count 226 X10*3/uL (160-400); Red Blood Count 4.32 X10*6/uL (4.60-5.80); Red Cell Distribution Width 11.9 % (11.0-16.0)
[2023-09-27 12:38] LABS: Creatinine Urine 192.57 mg/dL; Microalbum/Creatinine Ratio Ur 25.4 ug/mg cr (<30)
[2023-09-27 12:42] LABS: Alanine Aminotransferase 27 U/L (0-40); Albumin Level 4.5 g/dL (3.5-5.0); Alkaline Phosphatase 62 U/L (39-117); Anion Gap 10 (12-20); Aspartate Amino Transferase 18 U/L (5-37); Bilirubin Total 0.6 mg/dL (0.0-1.0); Blood Urea Nitrogen 15 mg/dL (9-16); Carbon Dioxide 30 mmol/L (22-29); Chloride 104 mmol/L (96-108); Cholesterol 187 mg/dL (<200); Estimated Glomerular Filt Rate > 60; Glucose Fasting 115 mg/dL (60-99); HDL Cholesterol 34 mg/dL (>40); LDL Cholesterol Calculated 128 mg/dL (<100); Potassium 4.1 mmol/L (3.3-5.1); Sodium 140 mmol/L (135-145); Total Protein 7.3 g/dL (6.5-8.0); Triglycerides 128 mg/dL (<150)
[2023-09-27 13:00] LABS: TSH reflex Free T4 0.56 uIU/mL (0.32-4.0); Vitamin D 25-OH Total 30.2 ng/mL (>30)
== END 2023-09-27 10:31 | disposition home or self-care (01) ==
LOC: HO.LAB 10:30
PROVIDERS: PCP Internal Medicine; Visit Provider Internal Medicine
DX: E78.00 Pure hypercholesterolemia, unspecified (principal); D64.9 Anemia, unspecified; E11.9 Type 2 diabetes mellitus without complications; E55.9 Vitamin D deficiency, unspecified
CPT/HCPCS: 36415; 80053; 80061; 81001; 82043; 82306; 82570; 83036; 84443; 85025

== ENCOUNTER 2023-10-01 13:44 | Outpatient (AMB) | payer OTHER, SELFPAY ==
[2023-10-01 13:46] VITALS: BP 142/80; PULSE 62; O2SAT 98; BMI 25.7
--- NOTE | 2023-10-01 13:46 | MHC.PC.OV ---
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 Required: No Allergies NSAIDS (Non-Steroidal Anti-Inflamma [NSAIDS (NON-STEROIDAL ANTI-INFLAMMA] Allergy (Severe, Verified 10/01/23 14:23) ASPIRIN ALLERGY...SWELLING AND HIVES aspirin [ASPIRIN] Allergy (Unknown, Verified 10/01/23 14:23) SWELLING/HIVES Penicillins [PENICILLINS] Allergy (Unknown, Verified 10/01/23 14:23) SWELLING/HIVES seafood Allergy (Unknown, Verified 10/01/23 14:23) Unknown Medication List - Last Reconciled 10/01/23 by Myles Ortega MD acetaminophen 500 - 1,000 mg (1 - 2 x 500 mg) PO Q6H PRN amlodipine 10 mg PO DAILY 90 days atorvastatin 40 mg PO DAILY 90 days carvedilol 25 mg PO BID 90 days cholecalciferol (vitamin D3) 50 mcg PO DAILY 90 days clonidine HCl 0.2 mg PO BEDTIME 90 days fenofibrate 54 mg PO DAILY 90 days meclizine 25 mg PO TID PRN metformin 1,000 mg PO BID 90 days spironolactone 25 mg PO DAILY 90 days tirzepatide (Mounjaro) 5 mg (0.5 mL) subcut QWEEK valsartan-hydrochlorothiazide 320-25 mg 1 tab PO DAILY 90 days Tobacco use date assessed: 07/09/23 Dental Screening Dental Screen Date: 03/20/23 HPI DM, hyperlipidemia, HTN HPI Details Patient comes in today for his follow up visit States that he feels okay He denies any headaches or dizziness Denies any chest pains, no shortness of breath No nausea /vomiting, no abdominal pain No change in bowel habits noted Needs his Mounjaro Rx refilled He had his follow up labs done a few days ago - to discuss his results He is also now scheduled to have surgery on his right hand to remove the foreign body in his hand in a couple of weeks on 10/13/2023 He also had his screening colonoscopy done a couple of months ago on 07/22/2023 - was recommended for repeat colonoscopy in 5 years (2028) [facility] Medical History Extraocular muscle palsy of right eye Vitamin D deficiency Overweight (BMI 25.0-29.9) Degenerative joint disease of right knee Pure hypercholesterolemia Diabetes mellitus Benign essential hypertension History of primary malignant neoplasm of urinary bladder Surgical History (Updated 10/01/23 @ 14:30 by Myles Ortega MD) H/O colonoscopy History of bladder surgery History of repair of right rotator cuff Previous back surgery Family History Mother High blood pressure Diabetes Father Cancer Social History Housing: Apartment Alcohol intake: former Patient Tobacco Use Status: Never used Tobacco e-Cigarette/Vaping Use: Never Used Second Hand Smoke Exposure: No service: No Current occupational status: employed Current occupational exposures/hazards: No Cognitive needs: No Hearing needs: No Vision needs: Yes (reading glasses) Questionnaire Thrive Questionnaire Date Thrive assessed: 06/25/23 AUDIT C Alcohol Use Questionnaire (AUDIT-C) 1. How often do you have a drink containing alcohol?: Never 3. How often do you have six or more drinks on one occasion?: Never Total Score: 0 Score Reviewed/Action Taken: Yes ROSA-7 AMB Questionnaire ROSA-7 Date ROSA - 7 assessed: 03/20/23 Source: Developed by Drs. Yonas Gay, Ashlie Wagner, Ck Urbano and colleagues, with an educational jennifer from [employer]. Review of Systems Const Denies chills, Denies fatigue, Denies fever(s) and Denies headache(s) ENT Denies dysphagia, Denies dizziness, Denies otalgia, Denies headache(s), Denies neck pain, Denies odynophagia and Denies sore throat Card Denies chest pain, Denies palpitations and Denies dyspnea Resp Denies cough and Denies dyspnea GI Denies abdominal pain, Denies constipation, Denies dysphagia, Denies heartburn, Denies diarrhea, Denies nausea, Denies odynophagia and Denies vomiting Denies dysuria, Denies nocturia and Denies urinary frequency Musc Denies back pain and Denies neck pain Skin/Breast Denies rash Neuro Denies dizziness and Denies headache(s) Endo Denies fatigue and Denies palpitations Physical exam (Primary Care) Vital Signs: Last Vital Signs Pulse 62 10/01/23 13:46 BP 142/80 H 10/01/23 13:46 Pulse Ox 98 10/01/23 13:46 Oxygen Delivery Method Room Air 10/01/23 13:46 BMI result Body Mass Index 25.7 Tobacco/Smoking Status: Tobacco use Status Tobacco use date assessed 07/09/23 10/01/23 13:47 Patient Tobacco Use Status Never used Tobacco 10/01/23 13:47 e-Cigarette/Vaping Use Never Used 10/01/23 13:47 Thrive Assessment: Date of Thrive Assessment Date Thrive assessed 06/25/23 10/01/23 13:47 Const General: no acute distress and alert HENMT Ears: TM's normal bilaterally and EAC's normal Throat: Yes posterior oropharynx normal and Yes tonsils normal (no TP congestion) Neck Neck: Yes no lymphadenopathy and Yes supple Thyroid: Thyroid normal Resp Auscultation: clear to auscultation bilaterally, no rales and no wheezes Cardio Rate: regular rate Rhythm: regular rhythm Heart sounds: no murmurs GI Palpation (GI): Soft to palpation and nontender Auscultation: normal bowel sounds General: Yes no CVA tenderness Back/Spine/Pelvis Back: no CVA tenderness Thoracic/Lumbar Spine: No lumbar spinal tenderness Skin Rashes: no rashes Extrem General: Yes no clubbing, cyanosis or edema Results Reviewed Results Reviewed: Laboratory Tests 09/27/23 09/27/23 11:20 11:24 WBC 5.0 Hgb 13.2 L Hct 39.3 L Plt Count 226 Sodium 140 Potassium 4.1 Creatinine 0.98 Estimated GFR > 60 Fasting Glucose 115 H Hemoglobin A1c % 5.2 Calcium 10.0 AST 18 ALT 27 Triglycerides 128 Cholesterol 187 LDL Cholesterol, Calc 128 H HDL Cholesterol 34 L TSH 0.56 Ur Specific [place] 1.020 Urine Protein Trace Urine Glucose (UA) Negative Urine Blood Negative Urine Nitrite Negative Ur Leukocyte Esterase Trace H Microalb/Creat Ratio 25.4 Assessment and Plan Assessment & Plan (1) Diabetes mellitus: Code(s): E11.9 - Type 2 diabetes mellitus without complications Qualifiers: Diabetes mellitus type: type 2 Diabetes mellitus [place] insulin use: without long term care phlebotomist use Diabetes mellitus complication status: with hyperglycemia Qualified Code(s): E11.65 - Type 2 diabetes mellitus with hyperglycemia Plan: His HgbA1c has improved significantly down to 5.2% on his labs done a few days ago (was at 8.2% a few months ago) - goal is <7.0% Continue Metformin 1000 mg BID and Mounjaro 5 mg SQ once a week - Rx refilled Will recheck his labs and HgbA1c in 3 months for follow up (2) Benign essential hypertension: Comment: Reviewed sx-no chest pain, dizziness, nausea vomiting , headaches or visual change Code(s): I10 - Essential (primary) hypertension Plan: Reinforced low sodium diet - goal is systolic BP of at least 120 to 130 mm or less Continue Amlodipine 10 mg QD, Spironolactone 25 mg QD, Carvedilol 25 mg BID and Valsartan-HCT 320-25 mg QD He is also now on Clonidine 0.2 mg Q HS and has had no problems with this since it was started at his last visit He is reminded to continue monitoring his blood pressure regularly (3) Pure hypercholesterolemia: Code(s): E78.00 - Pure hypercholesterolemia, unspecified Plan: Results of his labs done a few days ago reviewed and discussed with patient - he is advised that all of his cholesterol numbers have improved significantly from previous except for his LDL cholesterol, which came down by only 5 points Reinforced low cholesterol diet Continue Atorvastatin 40 mg QD and Fenofibrate 54 mg QD for now Will recheck his labs and fasting lipids in 3 months for follow up (4) Extraocular muscle palsy of right eye: Comment: medial rectus muscle Code(s): 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 Plan: Will refer him to neurology for further evaluation and management Will also refer him to ophthalmology for further evaluation and management (5) Degenerative joint disease of right knee: Code(s): M17.11 - Unilateral primary osteoarthritis, right knee Qualifiers: Osteoarthritis type: primary Qualified Code(s): M17.11 - Unilateral primary osteoarthritis, right knee Plan: Follow up with [facility] as scheduled He was previously being scheduled for some surgery on his knee but this was postponed/canceled - is unsure why Continue Tylenol 1,000 mg every 6 hours PRN for pain To consider referral to rheumatology if his joint symptoms persist or get worse (6) Vitamin D deficiency: Code(s): E55.9 - Vitamin D deficiency, unspecified Plan: Continue Vitamin D3 2000 units QD (7) Foreign body of left hand: Code(s): S60.552A - Superficial foreign body of left hand, initial encounter Qualifiers: Encounter type: sequela Qualified Code(s): S60.552S - Superficial foreign body of left hand, sequela Plan: (+) lodged foreign object in his left hand, confirmed on recent x-rays done a few months ago He was referred to orthopedics and is now scheduled for excision surgery in a couple of weeks on 10/13/2023 (8) Overweight (BMI 25.0-29.9): Code(s): E66.3 - Overweight Plan: Reinforced diet/exercise as tolerated/lose weight Plan Follow up in 3 months Orders: Orders Complete Blood Count Auto Diff 3 Months D64.9 - Anemia, unspecified Vitamin D 25-OH Total 3 Months E55.9 - Vitamin D deficiency, unspecified Comprehensive [place]. Panel Fast 3 Months E78.00 - Pure hypercholesterolemia, unspecified Lipid Panel 3 Months E78.00 - Pure hypercholesterolemia, unspecified Hemoglobin A1c 3 Months E11.9 - Type 2 diabetes mellitus without complications Microalbumin, Random (w Creat) 3 Months E11.9 - Type 2 diabetes mellitus without complications UA CC w/rflx Micro + Cult 3 Months R30.0 - Dysuria TSH reflex Free T4 3 Months E78.00 - Pure hypercholesterolemia, unspecified Medications: Refilled tirzepatide (Mounjaro) 5 mg (0.5 mL) subcut QWEEK 2 mL 0RF Coding Level of Care Code Est Pt Level 4 (21482) Complex EM visit Add On G2211 Diagnoses Type 2 diabetes mellitus with hyperglycemia, without long-term current use of insulin E11.65 Diabetes mellitus type: type 2 Diabetes mellitus [facility] insulin use: without long term care phlebotomist use Diabetes mellitus complication status: with hyperglycemia Benign essential hypertension I10 Pure hypercholesterolemia E78.00 Extraocular muscle palsy of right eye H49.9 Primary osteoarthritis of right knee M17.11 Osteoarthritis type: primary Vitamin D deficiency E55.9 Foreign body of left hand, sequela S60.552S Encounter type: sequela Overweight (BMI 25.0-29.9) E66.3
== END 2023-10-01 14:23 | disposition home or self-care (01) ==
PROVIDERS: PCP Internal Medicine; Visit Provider Internal Medicine
DX: E11.65 Type 2 diabetes mellitus with hyperglycemia (principal); I10 Essential (primary) hypertension; E78.00 Pure hypercholesterolemia, unspecified; H49.9 Unspecified paralytic strabismus; M17.11 Unilateral primary osteoarthritis, right knee; E55.9 Vitamin D deficiency, unspecified; S60.55 Superficial foreign body of hand; E66.3 Overweight
CPT/HCPCS: 99214; G2211

== ENCOUNTER 2023-10-13 09:58 | Day surgery (SDC) | payer OTHER, SELFPAY ==
[2023-10-13 11:31] VITALS: BP 165/90; PULSE 61; RESP 16; TEMP 36.7; O2SAT 96; BMI 26.6
--- NOTE | 2023-10-13 12:08 | MHC.SHP ---
Pre-Procedural Eval Section A - 24 Hr Update-Section A only Date of Service: 10/13/23 The patient is an INPATIENT: No Changes since office visit: No Cold of Flu in the past 2 weeks, No New Medical Problems, No Changes in Medication and No Patient answered all questions The patient has been examined within 24 hours of the surgical procedure. The History & Physical has been completed within 30 days and I have reviewed it.: Yes Section B - Complete if H&P > 30 days Chief Complaint: Superficial foreign body of left hand, sequela Allergies: Allergies Allergy/AdvReac Type Severity Reaction Status Date / Time NSAIDS (Non-Steroidal Allergy Severe ASPIRIN Verified 10/01/23 14:23 Anti-Inflamma ALLERGY...SWELLING [NSAIDS (NON-STEROIDAL AND HIVES ANTI-INFLAMMA] aspirin [ASPIRIN] Allergy Unknown SWELLING/HI Verified 10/01/23 14:23 VES Penicillins [PENICILLINS] Allergy Unknown SWELLING/HI Verified 10/01/23 14:23 VES seafood Allergy Unknown Unknown Verified 10/01/23 14:23 Exam Exam Comment: Left hand dorsal foreign body Plan Diagnosis/Plan: Unchanged I have reviewed the history and physical and performed a pertinent physical examination on my patient. No changes have occurred unless specified. Time Spent With Patient Time: Total time managing care of this patient today ____ minutes.
--- NOTE | 2023-10-13 12:08 | W.PM.OPN ---
Operative Note Operative Note Date of Service: 10/13/23 Narrative: Operative Note Preop diagnosis: 1. Left dorsal hand foreign body between the 3rd and 4th metacarpals Postop diagnosis: same Procedure: 1. Left dorsal hand foreign body removal, in the subcutaneous tissue Surgeon: Sowmya Flores MD Automation Qa Tester: None Anesthesia: digital block using 1% lidocaine with epinephrine Findings: A very small piece of glass or metal, measuring 1-2 mm in diameter was found in the subcutaneous tissue between the 3rd and 4th metacarpals on the dorsal aspect of his left hand. EBL: Less than 5 mL Tourniquet time: None Specimens: Foreign body sent to pathology Complications: None Disposition: Brought to recovery room in stable condition Plan: Follow-up for 7-10 days for wound check and suture removal and to check pathology Indications: The patient is 63 years old, with a foreign body in the dorsal aspect of the left hand . The risks and benefits of operative treatment including but not limited to risk of damage to blood vessels, nerves, tendons, infection, persistent pain, persistent symptoms, recurrence or possible need for additional surgery were discussed with the patient and the patient wishes to proceed with surgery. Procedure: Once consent was obtained a digital block was performed in the preop area using a combination of 1% lidocaine with epinephrine. The patient was then brought back to the operating suite and placed on the operative table in supine position. The left upper extremity was prepped and draped in a standard surgical fashion. Once assured that we had a good block, I made a 1.5 cm longitudinal incision centered over the soft tissue mass roughly between the 3rd and 4th metacarpal shafts on the dorsal aspect of the left hand. Incision was made through the skin to the subcutaneous tissues. I then dissected into the subcutaneous tissue and down to the fascia over the interosseous muscle bellies. The fascia over the interosseous muscle bellies appeared to be in good condition and not interrupted. I did not appreciate any foreign body or masses in this area. I also evaluated the extensor tendons extending to the middle and ring fingers and did not see any foreign bodies associated with the tendons. I then palpated in the subcutaneous tissue on either side of the incision and felt a sharp small foreign body on the ulnar flap of the incision. Careful dissection through this subcutaneous tissue, and repeated palpation finally revealed to us a very small piece of either glass or metal that measured 1-2 mm in diameter. This was removed and placed on the back table and then sent for evaluation by the pathology team. No other foreign bodies were palpated or visualized. Once satisfied with our foreign body removal the wound was copiously irrigated with normal saline and hemostasis was obtained with a brief period of local pressure. The skin edges were reapproximated with some 5.0 nylon suture material and a sterile dressing was applied. The patient appears to have tolerated the procedure well and with no complications. All digits were well vascularized at the conclusion of the case.
[2023-10-13 13:51] VITALS: BP 161/82; PULSE 60; RESP 16; O2SAT 99
== END 2023-10-13 13:57 | disposition home or self-care (01) ==
PROVIDERS: PCP Internal Medicine; Visit Provider Orthopaedic Surgery
PROC: (CPT 10120; principal; 2023-10-13 11:50)
DX: S60.552A Superficial foreign body of left hand, initial encounter (principal); M79.642 Pain in left hand; W22.8XXA Striking against or struck by other objects, initial encounter; Y93.89 Activity, other specified; Y92.69 Other specified industrial and construction area as the place of occurrence of the external cause; Y99.0 Civilian activity done for income or pay; I10 Essential (primary) hypertension; E78.00 Pure hypercholesterolemia, unspecified; E11.65 Type 2 diabetes mellitus with hyperglycemia; H50.6 Mechanical strabismus; E55.9 Vitamin D deficiency, unspecified; Z79.84 Long term (current) use of oral hypoglycemic drugs; Z79.899 Other long term (current) drug therapy; Z88.0 Allergy status to penicillin; Z88.6 Allergy status to analgesic agent; Z85.51 Personal history of malignant neoplasm of bladder; Z98.890 Other specified postprocedural states
CPT/HCPCS: 10120; 88300; J0171

== ENCOUNTER → 2023-10-13 09:58 | Outpatient (BNV) | payer OTHER, SELFPAY | PROVIDERS: PCP Internal Medicine; Visit Provider Orthopaedic Surgery | DX: S60.552A Superficial foreign body of left hand, initial encounter (principal) | CPT/HCPCS: 10120 ==

== ENCOUNTER 2023-10-29 12:39 | Outpatient (AMB) | payer OTHER, SELFPAY ==
--- NOTE | 2023-10-29 12:50 | A.OFFVIS_ITS ---
Vital Signs 10/29/23 13:13 Height 5 ft 9 in Weight 180 lb BMI 26.6 Intake Visit Reasons: PO LT Dorsal hand FOB removal 10/13/23 AR Intake Note: Adilson is a 63 yo right hand dominant male who presents today post operatively s/p left dorsal hand FOB removal done 10/13/[address] Flores. Patient denies pain, numbness, or tingling. Denies locking on finger. Sutures removed in office today and steri strips applied. Allergies NSAIDS (Non-Steroidal Anti-Inflamma [NSAIDS (NON-STEROIDAL ANTI-INFLAMMA] Allergy (Severe, Verified 10/29/23 13:13) ASPIRIN ALLERGY...SWELLING AND HIVES aspirin [ASPIRIN] Allergy (Unknown, Verified 10/29/23 13:13) SWELLING/HIVES Penicillins [PENICILLINS] Allergy (Unknown, Verified 10/29/23 13:13) SWELLING/HIVES seafood Allergy (Unknown, Verified 10/29/23 13:13) Unknown HPI HPI PO LT Dorsal hand FOB removal 10/13/23 AR: Details: Adilson is a 63 year old right hand dominant Diabetic man who returns S/P left hand FOB, DOS: 10/13/23 He says he is doing well and he says his hand feels much better now. He is happy with the results of his surgery and says that he can feel that the FOB is out . He denies any numbness or tingling. He is a Diabetic, he says this is well-controlled. 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 [facility] Medical History Extraocular muscle palsy of right eye Vitamin D deficiency Overweight (BMI 25.0-29.9) Degenerative joint disease of right knee Pure hypercholesterolemia Diabetes mellitus Benign essential hypertension History of primary malignant neoplasm of urinary bladder Surgical History (Updated 10/01/23 @ 14:30 by Myles Ortega MD) H/O colonoscopy History of bladder surgery History of repair of right rotator cuff Previous back surgery Family History Mother High blood pressure Diabetes Father Cancer Social History Housing: Apartment Alcohol intake: former Patient Tobacco Use Status: Never used Tobacco e-Cigarette/Vaping Use: Never Used Second Hand Smoke Exposure: No service: No Current occupational status: employed Current occupational exposures/hazards: No Cognitive needs: No Hearing needs: No Vision needs: Yes (reading glasses) Review of Systems Const All systems reviewed & are unremarkable except as noted in HPI and below Physical Exam Vital Signs: BMI result Body Mass Index 26.6 Const General: no acute distress and alert Orientation/consciousness: patient oriented x3 Neuro General: patient oriented x3 Extrem Other: The patient was alert oriented and in no acute distress The incision is healing well with no erythema drainage or evidence of infection. Sutures removed and Steri-Strips applied He can make a fist and extend all his digits Sensation is intact Cap refill is brisk Pathology report: 10/13/23 Gross Description Received fresh is 1 transparent 1 mm in greatest dimension portion of firm solid material, consistent with foreign body. The specimen is submitted for gross assessment, no sections are submitted per pathology protocol. (DTL) Psych Appearance: grossly normal Affect: normal affect Attitude: cooperative Assessment & Plan Assessment & Plan (1) Foreign body of left hand: Code(s): S60.552A - Superficial foreign body of left hand, initial encounter Category: Surgical Qualifiers: Encounter type: sequela Qualified Code(s): S60.552S - Superficial foreign body of left hand, sequela (2) Diabetes mellitus: Code(s): E11.9 - Type 2 diabetes mellitus without complications Category: Medical Qualifiers: Diabetes mellitus complication status: with hyperglycemia Diabetes mellitus usp insulin use: without usp use Diabetes mellitus type: type 2 Qualified Code(s): E11.65 - Type 2 diabetes mellitus with hyperglycemia Plan Assessment & Plan: 1. 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 The patient appears to be doing well post-operatively, and he is very happy with the results of his surgery I educated him about the post-operative course I explained the signs and symptoms of infection, if the patient develops any new or worsening erythema, drainage, pain, or warmth they should contact the clinic or attend the ED. I discussed activity modifications, he is to lift nothing heavier than a cellphone for the next two weeks He will perform gentle ROM exercises at home He should avoid any underwater activities for the next 5 days He should gently massage about the incision site to reduce the risk of hypersensitivity He can follow up prn Scribed for Sowmya Flores MD by Sp Ashford medical instrument technician, on 10/29/23 at 1:20 PM, EST. Scribe Plan - Not visible on output: Scribed for Sowmya Flores MD by Sp Ashford medical instrument technician, on [ ] at [ ], EST. Coding Level of Care Code Global (99486) Diagnoses Foreign body of left hand, sequela S60.552S Encounter type: sequela Type 2 diabetes mellitus with hyperglycemia, without long-term current use of insulin E11.65 Diabetes mellitus complication status: with hyperglycemia Diabetes mellitus usp insulin use: without usp use Diabetes mellitus type: type 2
[2023-10-29 13:13] VITALS: BMI 26.6
== END 2023-10-29 13:57 | disposition home or self-care (01) ==
PROVIDERS: PCP Internal Medicine; Visit Provider Orthopaedic Surgery
DX: S60.55 Superficial foreign body of hand (principal); E11.65 Type 2 diabetes mellitus with hyperglycemia
CPT/HCPCS: 99024

== ENCOUNTER → 2023-10-29 12:39 | Outpatient (BNVA) | payer OTHER, SELFPAY | PROVIDERS: PCP Internal Medicine; Visit Provider Orthopaedic Surgery ==

== ENCOUNTER 2024-01-13 11:37 | Outpatient (REF) | payer OTHER, SELFPAY ==
[2024-01-13 14:51] LABS: MANUAL DIFF FLAG NO
[2024-01-13 14:54] LABS: Basophils Absolute Auto 0.1 X10*3/uL (0.0-0.2); Basophils Percent Auto 0.8 % (0-2); Eosinophils Absolute Auto 0.4 X10*3/uL (0.0-0.4); Hematocrit 39.9 % (42.0-52.0); Hemoglobin 13.3 g/dl (14.0-18.0); Imm Gran Abs Auto 0.03 X10*3/uL (0.00-0.03); Imm Gran Pct Auto 0.5 % (0.0-0.4); Lymphocytes Absolute Auto 2.1 X10*3/uL (1.2-4.9); Lymphocytes Percent Auto 35.2 % (20-40); Mean Corpuscular HGB Conc 33.3 g/dl (31.0-36.0); Mean Corpuscular Hemoglobin 30.4 pg (27.0-33.0); Mean Corpuscular Volume 91.3 fL (80.0-98.0); Mean Platelet Volume 10.4 fL (9.4-12.4); Monocytes Absolute Auto 0.5 X10*3/uL (0.1-1.2); Monocytes Percent Auto 8.3 % (2-11); Neutrophils Percent Auto 49.2 % (45-73); Platelet Count 224 X10*3/uL (160-400); Red Blood Count 4.37 X10*6/uL (4.60-5.80); Red Cell Distribution Width 11.9 % (11.0-16.0)
[2024-01-13 14:59] LABS: Appearance Urine Clear; Color Urine Yellow; Glucose Urine UA Negative (Negative); Leukocyte Esterase Urine Negative (Negative); Nitrite Urine Negative (Negative); PH 6.5 (5.0-9.0); Urine Blood Negative (Negative); Urine Ketones Negative (Negative); Urine Protein Negative (Neg-Trace)
[2024-01-13 15:20] LABS: Alanine Aminotransferase 35 U/L (0-40); Albumin Level 4.4 g/dL (3.5-5.0); Alkaline Phosphatase 58 U/L (39-117); Anion Gap 11 (12-20); Aspartate Amino Transferase 30 U/L (5-37); Bilirubin Total 0.5 mg/dL (0.0-1.0); Blood Urea Nitrogen 18 mg/dL (9-16); Calcium 9.6 mg/dL (8.4-10.2); Carbon Dioxide 29 mmol/L (22-29); Chloride 107 mmol/L (96-108); Cholesterol 195 mg/dL (<200); Estimated Glomerular Filt Rate > 60; Glucose Fasting 96 mg/dL (60-99); HDL Cholesterol 37 mg/dL (>40); LDL Cholesterol Calculated 130 mg/dL (<100); Sodium 143 mmol/L (135-145); Total Protein 7.3 g/dL (6.5-8.0); Triglycerides 140 mg/dL (<150)
[2024-01-13 15:29] LABS: Creatinine Urine 141.06 mg/dL; Microalbum/Creatinine Ratio Ur 33.3 ug/mg cr (<30)
[2024-01-13 15:36] LABS: TSH reflex Free T4 1.21 uIU/mL (0.32-4.0); Vitamin D 25-OH Total 44.9 ng/mL (>30)
[2024-01-13 15:39] LABS: Estimated Average Glucose 108 mg/dL; Hemoglobin A1C 123.4522 umol/L; Hemoglobin A1c % 5.4 % (<6.0); Total Hemoglobin (HGBA1C) 3441.0381 umol/L
== END 2024-01-13 11:38 | disposition home or self-care (01) ==
LOC: HO.WFDLDS 11:37
PROVIDERS: Visit Provider Internal Medicine
DX: D64.9 Anemia, unspecified (principal); E78.00 Pure hypercholesterolemia, unspecified; R30.0 Dysuria; E11.9 Type 2 diabetes mellitus without complications; E55.9 Vitamin D deficiency, unspecified
CPT/HCPCS: 36415; 80053; 80061; 81003; 82043; 82306; 82570; 83036; 84443; 85025

== ENCOUNTER 2024-07-05 17:23 | Outpatient (AMB) | payer OTHER, SELFPAY ==
--- OUTSIDE RECORDS SUMMARY | 2024-07-05 17:26 | XMS_ITS | Encounter Summary ---
Author Organization [facility] [employer] [facility] Address [address] [place] [address] Care Team Providers Care Special Police Name Role Phone Unavailable Primary Care Provider Unavailabl e Encounter Details Date Type Department Care Team (Latest Contact Info) Description 11/25/2018 [facility] Dental, Provider, DDS Social History Tobacco Use Types Packs/Day Years Used Date Smoking Tobacco: Never Assessed Sex and Gender Information Value Date Recorded Sex Assigned at Male 01/14/2022 10:23 AM EDT Legal Sex Male 10:23 AM EDT Gender Identity Male 05/15/2022 8:55 AM EST Sexual Orientation Choose not to disclose 2022 8:55 AM EST documented as of this encounter Plan of Treatment Not on file documented as of this encounter Visit Diagnoses Not on filedocumented in this encounter
--- OUTSIDE RECORDS SUMMARY | 2024-07-05 17:26 | XMS_ITS | Encounter Summary ---
Author Organization [employer] [facility] Address [address] [place] [address] Care Team Providers Care Ditch Worker Name Role Phone Unavailable Primary Care Provider Unavailabl e Encounter Details Date Type Department Care Team (Latest Contact Info) Description 02/24/2019 [facility] Dental, Provider, DDS Social [...]
--- OUTSIDE RECORDS SUMMARY | 2024-07-05 17:26 | XMS_ITS | Encounter Summary ---
Author Organization [employer] [facility] Address [address] [place] [address] Care Team Providers Care Director Of Consumer Affairs Name Role Phone Unavailable Primary Care Provider Unavailabl e Encounter Details Date Type Department Care Team (Latest Contact Info) Description 11/26/2018 [facility] Dental, Provider, DDS Social [...]
--- OUTSIDE RECORDS SUMMARY | 2024-07-05 17:26 | XMS_ITS | Clinical Summary ---
Author Organization [employer] Address [address] [place] [address] Care Team Providers Care Chef'S Assistant Name Role Phone Unavailable Primary Care Provider Unavailabl e Social History Tobacco Use Types Packs/Day Years Used Date Smoking Tobacco: Never Assessed Sex and Gender Information Value Date Recorded Sex Assigned at Male 01/14/2022 10:23 AM EDT Legal Sex Male 10:23 AM EDT Gender Identity Male 05/15/2022 8:55 AM EST Sexual Orientation Choose not to disclose 2022 8:55 AM EST Plan of Treatment Health Maintenance Due Date Last Done Comments CT Colonography 1961 Colonoscopy 1961 Colorectal Cancer Screening 1961 Depression Screening 1961 FIT DNA/Cologuard 1961 FIT 1961 FOBT 1961 HIV Screening 1961 Lipid Panel 1961 SDOH Screening 1961 Sigmoidoscopy 1961 Alcohol/Substance Use Screening 1973 Tobacco Screening 1973 Hepatitis C Screening 06/08/1979 DTaP/Tdap/Td Vaccines (1 - Tdap) 1980 Pneumococcal Vaccine: 50+ Years (1 of 1 - PCV) 06/08/2011 Zoster Vaccines (1 of 2) 06/08/2011 Dental X-Ray: Full Mouth 02/22/2019 02/22/2016 Dental Oral Exam 05/27/2019 11/25/2018, 02/22/2016 Dental Prophylaxis 10/14/2019 04/14/2019 Dental X-Ray: Bitewings 11/27/2019 11/26/19 19, 02/22/2016 COVID-19 Vaccine ( - 2023-2 5 season) 2023 Influenza Vaccine (#1) 2023 RSV Patients and Patients Aged 60 years or older (1 - 1-dose 75+ series) 2036 HIB Vaccines Aged Out No longer eligi ble based on patient's age to complete this topic HPV Vaccines Aged Out No longer eligi ble based on patient's age to complete this topic Hepatitis A Vaccines Aged Out No long er eligible based on patient's age to complete this topic Hepatitis B Vaccines Aged Out No long er eligible based on patient's age to complete this topic IPV Vaccines Aged Out No longer eligi ble based on patient's age to complete this topic Meningococcal Vaccine Aged Out No kadeem mendoza eligible based on patient's age to complete this topic RSV under 20 months Aged Out No longe r eligible based on patient's age to complete this topic Rotavirus Vaccines Aged Out No longer eligible based on patient's age to complete this topic Procedures Procedure Name Priority Date/Time Associated Diagnosis Comments PROPHYLAXIS - ADULT Routine 04/14/2019 1 2:00 AM EST BITEWINGS - 4 RADIOGRAPHIC IMAGES Routine 11/25/2018 12:00 AM EDT PERIODIC ORAL EVALUATION - ESTABLISHED PATIENT Routine 11/25/2018 12:00 AM EDT INTRAORAL - COMPLETE SERIES OF RADIOGRAPHIC IMAGES Routine 02/22/2016 12:00 AM EST from Last 3 Months or Most Recently Relevant to Health Maintenance Insurance [facility] MEDICAID STAND ADULT
[2024-07-05 17:33] VITALS: BP 148/90; PULSE 59; O2SAT 99; BMI 26.4
--- NOTE | 2024-07-05 17:33 | MHC.PC.OV ---
Vital Signs 07/05/24 17:33 Height 5 ft 9 in Weight 179 lb BMI 26.4 BP 148/90 H Blood Pressure Location Lt brachial Position Sitting Pulse 59 Pulse Source Pulse Oximeter Pulse Oximetry (%) 99 Oxygen Delivery Method Room Air Intake Visit Reasons: Annual physical Intake Note: Patient here for a physical exam Electromechanical Inspector Required: No Accompanied by: Self / Same As Patient Allergies NSAIDS (Non-Steroidal Anti-Inflamma [NSAIDS (NON-STEROIDAL ANTI-INFLAMMA] Allergy (Severe, Verified 07/05/24 17:44) ASPIRIN ALLERGY...SWELLING AND HIVES aspirin [ASPIRIN] Allergy (Unknown, Verified 07/05/24 17:44) SWELLING/HIVES Penicillins [PENICILLINS] Allergy (Unknown, Verified 07/05/24 17:44) SWELLING/HIVES seafood Allergy (Unknown, Verified 07/05/24 17:44) Unknown Medication List - Last Reconciled 07/05/24 by Myles Ortega MD acetaminophen 500 - 1,000 mg (1 - 2 x 500 mg) PO Q6H PRN amlodipine 10 mg PO DAILY 90 days atorvastatin 40 mg PO DAILY 90 days carvedilol 25 mg PO BID 90 days cholecalciferol (vitamin D3) 50 mcg PO DAILY 90 days clonidine HCl 0.2 mg PO BEDTIME 90 days fenofibrate 54 mg PO DAILY 90 days meclizine 25 mg PO TID PRN metformin 1,000 mg PO BID 90 days oxycodone-acetaminophen 5-325 mg 1 tab PO Q6H PRN spironolactone 25 mg PO DAILY 90 days tirzepatide (Mounjaro) 5 mg (0.5 mL) subcut QWEEK valsartan-hydrochlorothiazide 320-25 mg 1 tab PO DAILY 90 days Tobacco use date assessed: 07/05/24 Dental Screening Dental Screen Date: 03/20/23 Did you have a dental visit in the last 12 months?: No Did you have a dental problem in the last 6 months where you did not have access to dental care?: No Was dental information given to patient?: Patient has dentist HPI Annual physical HPI Details comes in for annual PE - last seen 10/01/23 [facility] Medical History Extraocular muscle palsy of right eye Vitamin D deficiency Overweight (BMI 25.0-29.9) Degenerative joint disease of right knee Pure hypercholesterolemia Diabetes mellitus Benign essential hypertension History of primary malignant neoplasm of urinary bladder Surgical History H/O colonoscopy History of bladder surgery History of repair of right rotator cuff Previous back surgery Family History Mother High blood pressure Diabetes Father Cancer Social History Housing: Apartment Alcohol intake: former Patient Tobacco Use Status: Never used Tobacco e-Cigarette/Vaping Use: Never Used Second Hand Smoke Exposure: No service: No Current occupational status: employed Current occupational exposures/hazards: No Cognitive needs: No Hearing needs: No Vision needs: Yes (reading glasses) Questionnaire PHQ-9 Over the last 2 weeks, how often have you been bothered by any of the following problems? 1. Little interest or pleasure in doing things: not at all 2. Feeling down, depressed, or hopeless: not at all 3. Trouble falling or staying asleep, or sleeping too much: not at all 4. Feeling tired or having little energy: not at all 5. Poor appetite or overeating: not at all 6. Feeling bad about yourself - or that you are a failure or have let yourself or your family down: not at all 7. Trouble concentrating on things, such as reading the newspaper or watching television: not at all 8. Moving or speaking so slowly that other people could have noticed. Or the opposite - being so fidgety or restless that you have been moving around a lot more than usual: not at all 9. Thoughts that you would be better off or of hurting yourself in some way: not at all Total score: 0 Depression Screening Interpretation: Negative Depression Screening Done: Yes Source: Developed by Drs. Yonas Gay, Ashlie aWgner, Ck Urbano and colleagues, with an educational jennifer from [employer]. Thrive Questionnaire Date Thrive assessed: 07/05/24 I am a: Patient What is your living situation today?: I have a steady place to live Within the past 12 months, did the food you bought not last and you didn't have the money to get more?: Never true Within the past 12 months, did you worry whether your food would run out before you got money to buy more?: Never true Do you have trouble paying for medicines?: No Do you have trouble getting transportation to medical appointments?: No Do you have trouble paying your heating and electricity bill?: No Do you have trouble taking care of your child, family member or friend?: No Do you have trouble with day-to-day activities such as bathing, preparing meals, shopping, managing finances, etc.?: No Are you currently unemployed and looking for a job?: No Are you interested in more education?: No Please select the resources that you would like help with: None Currently or been in a relationship where the following occur: No concerns reported THRIVE Score: 0 AUDIT C Alcohol Use Questionnaire (AUDIT-C) 1. How often do you have a drink containing alcohol?: Never Total Score: 0 ROSA-7 AMB Questionnaire ROSA-7 Date ROSA - 7 assessed: 07/05/24 Feeling nervous, anxious, or on edge: 0 = Not at all Not being able to stop or control worryin = Not at all Worrying too much about different things: 0 = Not at all Trouble relaxin = Not at all Being so restless that it is hard to sit still: 0 = Not at all Becoming easily annoyed or irritable: 0 = Not at all Feeling afraid as if something awful might happen: 0 = Not at all Total ROSA-7 score (0-4 normal; 5-9 mild; 10-14 moderate; 15-21 severe): 0 Source: Developed by Drs. Yonas Gay, Ashlie Wagner, Ck Urbano and colleagues, with an educational jennifer from [employer]. Physical exam (Primary Care) Vital Signs: Last Vital Signs Pulse 59 07/05/24 17:33 BP 148/90 H 07/05/24 17:33 Pulse Ox 99 07/05/24 17:33 Oxygen Delivery Method Room Air 07/05/24 17:33 BMI result Body Mass Index 26.4 Tobacco/Smoking Status: Tobacco use Status Tobacco use date assessed 07/05/24 07/05/24 17:41 Patient Tobacco Use Status Never used Tobacco 07/05/24 17:41 e-Cigarette/Vaping Use Never Used 07/05/24 17:41 PHQ-9: PHQ-9 Score PHQ-9: Total score 0 07/05/24 17:41 Depression Screening Interpretation: Negative Thrive Assessment: Date of Thrive Assessment Date Thrive assessed 07/05/24 07/05/24 17:41 Currently or been in a relationship where the following occur: No concerns reported Results AMB Hemoglobin A1c AMB Hemoglobin A1c 7.3 % Last Edit by MAXIMUS Hernandez on 07/05/24 17:43 Results Reviewed Results Reviewed: Laboratory Last Values Hgb A1c (Clinic) 7.3 % (4.0-6.0) H 07/05/24 17:33 Coding Diagnoses Annual physical exam Z00. Assessment & Plan Assessment & Plan (1) Annual physical exam: Code(s): Z00.00 - Encounter for general adult medical examination without abnormal findings Category: Medical Orders: Orders Complete Blood Count Auto Diff Today D64.9 - Anemia, unspecified, Z00.00 - Encounter for general adult medical examination without abnormal findings TSH reflex Free T4 Today E78.00 - Pure hypercholesterolemia, unspecified, Z00.00 - Encounter for general adult medical examination without abnormal findings UA CC w/rflx Micro + Cult Today R30.0 - Dysuria, Z00.00 - Encounter for general adult medical examination without abnormal findings AMB Hemoglobin A1c Today E11.65 - Type 2 diabetes mellitus with hyperglycemia Comprehensive [place]. Panel Fast Today E78.00 - Pure hypercholesterolemia, unspecified, Z00.00 - Encounter for general adult medical examination without abnormal findings Lipid Panel Today E78.00 - Pure hypercholesterolemia, unspecified, Z00.00 - Encounter for general adult medical examination without abnormal findings Microalbumin, Random (w Creat) Today E11.9 - Type 2 diabetes mellitus without complications, Z00.00 - Encounter for general adult medical examination without abnormal findings Vitamin B12 and Folate Today E53.8 - Deficiency of other specified B group vitamins, Z00.00 - Encounter for general adult medical examination without abnormal findings Vitamin D 25-OH Total Today E55.9 - Vitamin D deficiency, unspecified, Z00.00 - Encounter for general adult medical examination without abnormal findings Prostate Specific Antigen Today N40.0 - Benign prostatic hyperplasia without lower urinary tract symptoms, Z00.00 - Encounter for general adult medical examination without abnormal findings Comprehensive [place]. Panel Fast 4 Months E78.00 - Pure hypercholesterolemia, unspecified Lipid Panel 4 Months E78.00 - Pure hypercholesterolemia, unspecified Hemoglobin A1c 4 Months E11.9 - Type 2 diabetes mellitus without complications Microalbumin, Random (w Creat) 4 Months E11.9 - Type 2 diabetes mellitus without complications Medications: New hydralazine 10 mg PO BID 30 days 60 tabs 3RF Refilled meclizine 25 mg PO TID PRN 20 tabs 0RF dizziness
== END 2024-07-05 18:00 | disposition home or self-care (01) ==
LOC: HO.HMCH 17:24
PROVIDERS: PCP Internal Medicine; Visit Provider Internal Medicine
DX: E11.65 Type 2 diabetes mellitus with hyperglycemia (principal)

== ENCOUNTER → 2024-07-05 17:23 | Outpatient (BNVA) | payer OTHER, SELFPAY | PROVIDERS: PCP Internal Medicine; Visit Provider Internal Medicine | DX: Z00.00 Encounter for general adult medical examination without abnormal findings (principal); E11.65 Type 2 diabetes mellitus with hyperglycemia; I10 Essential (primary) hypertension; E78.00 Pure hypercholesterolemia, unspecified; H49.9 Unspecified paralytic strabismus; M17.11 Unilateral primary osteoarthritis, right knee; R42 Dizziness and giddiness; E55.9 Vitamin D deficiency, unspecified; E66.3 Overweight; Z68.26 Body mass index [BMI] 26.0-26.9, adult; Z79.84 Long term (current) use of oral hypoglycemic drugs; Z79.899 Other long term (current) drug therapy | CPT/HCPCS: 83036; 96127 ==

== ENCOUNTER 2024-10-28 13:32 | Outpatient (REF) | payer OTHER, SELFPAY ==
[2024-10-28 13:55] LABS: MANUAL DIFF FLAG NO
[2024-10-28 14:04] LABS: Hematocrit 41.7 % (42.0-52.0); Hemoglobin 14.8 g/dl (14.0-18.0); Imm Gran Abs Auto 0.05 X10*3/uL (0.00-0.03); Imm Gran Pct Auto 0.5 % (0.0-0.4); Lymphocytes Absolute Auto 2.5 X10*3/uL (1.2-4.9); Mean Corpuscular HGB Conc 35.5 g/dl (31.0-36.0); Mean Corpuscular Hemoglobin 30.8 pg (27.0-33.0); Mean Corpuscular Volume 86.9 fL (80.0-98.0); NRBC Abs Auto 0.000 X10*3/uL (0.0-0.012); NRBC Pct Auto 0.0 /100WBC (0.0-0.2); Platelet Count 240 X10*3/uL (160-400); Red Blood Count 4.80 X10*6/uL (4.60-5.80); White Blood Count 9.5 X10*3/uL (4.8-10.8)
[2024-10-28 14:13] LABS: Appearance Urine Clear; Glucose Urine UA Negative (Negative); PH 7.0 (5.0-9.0); Specific Gravity - Urine 1.015 (1.005-1.025); UMIC TRIGGER UACC YES
[2024-10-28 14:16] LABS: Hemoglobin A1C 241.8672 umol/L; Total Hemoglobin (HGBA1C) 3822.3047 umol/L
[2024-10-28 14:21] LABS: UACC Culture Trigger YES
--- OUTSIDE RECORDS SUMMARY | 2024-10-28 14:23 | XMS_ITS | Encounter Summary ---
Author Organization [facility] [facility] Address [address] [place] [address] Care Team Providers Care Territory Sales Executive Name Role Phone Unavailable Primary Care Provider Unavailabl e Encounter Details Date Type Department Care Team (Latest Contact Info) Description 04/14/2019 [facility] Dental, Provider, DDS Social [...]
[2024-10-28 14:53] LABS: Microalbum/Creatinine Ratio Ur 47.8 ug/mg cr (<30)
[2024-10-28 14:55] LABS: Alanine Aminotransferase 42 U/L (0-40); Albumin Level 4.8 g/dL (3.5-5.0); Alkaline Phosphatase 76 U/L (39-117); Anion Gap 11 (12-20); Aspartate Amino Transferase 30 U/L (5-37); Blood Urea Nitrogen 23 mg/dL (9-16); Calcium 9.8 mg/dL (8.4-10.2); Carbon Dioxide 29 mmol/L (22-29); Chloride 101 mmol/L (96-108); Cholesterol 221 mg/dL (<200); Estimated Glomerular Filt Rate > 60; HDL Cholesterol 36 mg/dL (>40); Potassium 3.7 mmol/L (3.3-5.1); Sodium 137 mmol/L (135-145); Total Protein 7.6 g/dL (6.5-8.0); Triglycerides 233 mg/dL (<150)
[2024-10-28 15:26] LABS: Folate 12.0 ng/mL (> or = 4.0); Prostate Specific Antigen 3.81 ng/mL (<0.05-4.0); Vitamin B12 955 pg/mL (200-900)
== END 2024-10-28 13:33 | disposition home or self-care (01) ==
LOC: HO.LAB 13:32
PROVIDERS: Visit Provider Internal Medicine
DX: Z00.00 Encounter for general adult medical examination without abnormal findings (principal); E11.9 Type 2 diabetes mellitus without complications; E53.8 Deficiency of other specified B group vitamins; N40.0 Benign prostatic hyperplasia without lower urinary tract symptoms; E55.9 Vitamin D deficiency, unspecified; E78.00 Pure hypercholesterolemia, unspecified; D64.9 Anemia, unspecified; Z12.5 Encounter for screening for malignant neoplasm of prostate
CPT/HCPCS: 36415; 80053; 80061; 81001; 82043; 82306; 82570; 82607; 82746; 83036; 84153; 84443; 85025; 87086

== ENCOUNTER 2024-11-01 13:17 | Outpatient (AMB) | payer OTHER, SELFPAY ==
[2024-11-01 13:23] VITALS: BP 148/82; PULSE 68; O2SAT 98; BMI 25.9
--- NOTE | 2024-11-01 13:23 | A.OFFPC_ITS ---
Vital Signs 11/01/24 13:23 Height 5 ft 9 in Weight 175 lb 2 oz BMI 25.9 BP 148/82 H Blood Pressure Location Lt brachial Position Sitting Pulse 68 Pulse Source Pulse Oximeter Pulse Oximetry (%) 98 Oxygen Delivery Method Room Air Intake Visit Reasons: HTN, hyperlipidemia, DM, vertigo Visual C Developer Required: No Accompanied by: Self / Same As Patient Allergies NSAIDS (Non-Steroidal Anti-Inflamma (NSAIDS (NON-STEROIDAL ANTI-INFLAMMA) Allergy (Severe, Verified 11/01/24 14:06) ASPIRIN ALLERGY...SWELLING AND HIVES aspirin (ASPIRIN) Allergy (Unknown, Verified 11/01/24 14:06) SWELLING/HIVES Penicillins (PENICILLINS) Allergy (Unknown, Verified 11/01/24 14:06) SWELLING/HIVES seafood Allergy (Unknown, Verified 11/01/24 14:06) Unknown Medication List - Last Reconciled 11/01/24 by Myles Ortega MD acetaminophen 500 - 1,000 mg (1 - 2 x 500 mg) PO Q6H PRN amlodipine 10 mg PO DAILY 90 days atorvastatin 40 mg PO DAILY 90 days carvedilol 25 mg PO BID 90 days cholecalciferol (vitamin D3) 50 mcg PO DAILY 90 days clonidine HCl 0.2 mg PO BEDTIME 90 days fenofibrate 54 mg PO DAILY 90 days hydralazine 10 mg PO BID 30 days meclizine 25 mg PO TID PRN metformin 1,000 mg PO BID 90 days oxycodone-acetaminophen 5-325 mg 1 tab PO Q6H PRN spironolactone 25 mg PO DAILY 90 days tirzepatide (Mounjaro) 5 mg (0.5 mL) subcut QWEEK valsartan-hydrochlorothiazide 320-25 mg 1 tab PO DAILY 90 days Tobacco use date assessed: 11/01/24 Dental Screening Dental Screen Date: 11/01/24 Did you have a dental visit in the last 12 months?: No Did you have a dental problem in the last 6 months where you did not have access to dental care?: No Was dental information given to patient?: No HPI HTN, hyperlipidemia, DM, vertigo HPI Details Patient comes in today for his follow up visit States that he feels okay except for increasing right knee pain lately He denies any recent injury or trauma to his knee He denies any headaches or dizziness Denies any chest pains, no increased SOB No nausea/vomiting, no abdominal pain No change in bowel habits noted He had his follow up labs done a few days ago - to discuss his results [facility] Medical History Extraocular muscle palsy of right eye Vitamin D deficiency Overweight (BMI 25.0-29.9) Degenerative joint disease of right knee Pure hypercholesterolemia Diabetes mellitus Benign essential hypertension History of primary malignant neoplasm of urinary bladder Surgical History Hx of hand surgery H/O colonoscopy History of bladder surgery History of repair of right rotator cuff Previous back surgery Family History Mother High blood pressure Diabetes Father Cancer Social History Housing: Apartment Alcohol intake: former Patient Tobacco Use Status: Never used Tobacco e-Cigarette/Vaping Use: Never Used Second Hand Smoke Exposure: No service: No Current occupational status: employed Current occupational exposures/hazards: No Cognitive needs: No Hearing needs: No Vision needs: Yes (reading glasses) Questionnaire PHQ-9 Over the last 2 weeks, how often have you been bothered by any of the following problems? 1. Little interest or pleasure in doing things: not at all 2. Feeling down, depressed, or hopeless: not at all 3. Trouble falling or staying asleep, or sleeping too much: not at all 4. Feeling tired or having little energy: not at all 5. Poor appetite or overeating: not at all 6. Feeling bad about yourself - or that you are a failure or have let yourself or your family down: not at all 7. Trouble concentrating on things, such as reading the newspaper or watching television: not at all 8. Moving or speaking so slowly that other people could have noticed. Or the opposite - being so fidgety or restless that you have been moving around a lot more than usual: not at all 9. Thoughts that you would be better off or of hurting yourself in some way: not at all Total score: 0 Depression Screening Interpretation: Negative Depression Screening Done: Yes 69756 - PHQ-9 Billing: Yes Source: Developed by Drs. Yonas Gay, Ashlie Wagner, Ck Urbano and colleagues, with an educational jennifer from [employer]. Thrive Questionnaire Date Thrive assessed: 11/01/24 I am a: Patient What is your living situation today?: I choose not to answer this question Within the past 12 months, did the food you bought not last and you didn't have the money to get more?: Never true Within the past 12 months, did you worry whether your food would run out before you got money to buy more?: Never true Do you have trouble paying for medicines?: No Do you have trouble getting transportation to medical appointments?: No Do you have trouble paying your heating and electricity bill?: No Do you have trouble taking care of your child, family member or friend?: No Do you have trouble with day-to-day activities such as bathing, preparing meals, shopping, managing finances, etc.?: No Are you currently unemployed and looking for a job?: No Are you interested in more education?: No Please select the resources that you would like help with: None Currently or been in a relationship where the following occur: No concerns reported THRIVE Score: 0 AUDIT C Alcohol Use Questionnaire (AUDIT-C) 1. How often do you have a drink containing alcohol?: Never 3. How often do you have six or more drinks on one occasion?: Never Total Score: 0 Score Reviewed/Action Taken: Yes ROSA-7 AMB Questionnaire ROSA-7 Date ROSA - 7 assessed: 11/01/24 Feeling nervous, anxious, or on edge: 0 = Not at all Not being able to stop or control worryin = Not at all Worrying too much about different things: 0 = Not at all Trouble relaxin = Not at all Being so restless that it is hard to sit still: 0 = Not at all Becoming easily annoyed or irritable: 0 = Not at all Feeling afraid as if something awful might happen: 0 = Not at all Total ROSA-7 score (0-4 normal; 5-9 mild; 10-14 moderate; 15-21 severe): 0 Source: Developed by Ashlie Aguilar Kurt Kroenke and colleagues, with an educational jennifer from [employer]. Review of Systems Const Denies chills, Denies fatigue, Denies fever(s) and Denies headache(s) ENT Denies dysphagia, Denies dizziness, Denies otalgia, Denies headache(s), Denies neck pain, Denies odynophagia and Denies sore throat Card Denies chest pain, Denies irregular heart rhythm, Denies palpitations and Denies dyspnea Resp Denies chest congestion, Denies cough and Denies dyspnea GI Denies abdominal pain, Denies constipation, Denies dysphagia, Denies heartburn, Denies diarrhea, Denies nausea, Denies odynophagia and Denies vomiting Denies difficulty urinating, Denies dysuria and Denies urinary frequency Musc Denies back pain, Reports arthralgias (in the right knee), Denies joint swelling and Denies neck pain Skin/Breast Denies rash Neuro Denies dizziness, Denies headache(s) and Denies paresthesias Endo Denies fatigue and Denies palpitations Physical exam (Primary Care) Vital Signs: Last Vital Signs Pulse 68 11/01/24 13:23 BP 148/82 H 11/01/24 13:23 Pulse Ox 98 11/01/24 13:23 Oxygen Delivery Method Room Air 11/01/24 13:23 BMI result Body Mass Index 25.9 Tobacco/Smoking Status: Tobacco use Status Tobacco use date assessed 11/01/24 11/01/24 13:27 Patient Tobacco Use Status Never used Tobacco 11/01/24 13:27 e-Cigarette/Vaping Use Never Used 11/01/24 13:27 PHQ-9: PHQ-9 Score PHQ-9: Total score 0 11/01/24 14:09 Depression Screening Interpretation: Negative Thrive Assessment: Date of Thrive Assessment Date Thrive assessed 11/01/24 11/01/24 13:27 Currently or been in a relationship where the following occur: No concerns reported Const General: no acute distress and alert HENMT Ears: TM's normal bilaterally and EAC's normal Throat: Yes posterior oropharynx normal and Yes tonsils normal (no TP congestion) Neck Neck: Yes supple and No lymphadenopathy Thyroid: Thyroid normal Resp Auscultation: clear to auscultation bilaterally, no rales and no wheezes Cardio Rate: regular rate Rhythm: regular rhythm Heart sounds: no murmurs GI Palpation (GI): Soft to palpation and nontender Auscultation: normal bowel sounds General: Yes no CVA tenderness Back/Spine/Pelvis Back: no CVA tenderness Thoracic/Lumbar Spine: No lumbar spinal tenderness Skin Rashes: no rashes Extrem General: Yes no clubbing, cyanosis or edema Right lower extremity: knee Details: tenderness; no swelling Results Reviewed Results Reviewed: Laboratory Tests 10/28/24 10/28/24 13:50 13:55 WBC 9.5 Hgb 14.8 Hct 41.7 L Plt Count 240 Sodium 137 Potassium 3.7 Creatinine 0.98 Estimated GFR > 60 Fasting Glucose 144 H Hemoglobin A1c % 7.9 H Calcium 9.8 AST 30 ALT 42 H Triglycerides 233 H Cholesterol 221 H LDL Cholesterol, Calc 139 H HDL Cholesterol 36 L Prostate Specific Ag 3.81 Vitamin B12 955 H 25-OH Vitamin D Total 28.0 L TSH 1.46 Ur Specific Stuart 1.015 Urine Protein Trace Urine Glucose (UA) Negative Urine Blood Negative Urine Nitrite Negative Ur Leukocyte Esterase Small (1+) H Microalb/Creat Ratio 47.8 H Coding Level of Care Code Est Pt Level 4 (52045) Diagnoses Type 2 diabetes mellitus with hyperglycemia, without long-term current use of insulin E11.65 Diabetes mellitus complication status: with hyperglycemia Diabetes mellitus fdc insulin use: without field supervisor use Diabetes mellitus type: type 2 Benign essential hypertension I10 Pure hypercholesterolemia E78.00 Extraocular muscle palsy of right eye H49.9 Primary osteoarthritis of right knee M17.11 Osteoarthritis type: primary Dizziness R42 Vitamin D deficiency E55.9 Overweight (BMI 25.0-29.9) E66.3 Additional Codes PHQ-9 - 54907 - PHQ-9 Billing: Yes ([id number]) Assessment & Plan Assessment & Plan (1) Diabetes mellitus: Code(s): E11.9 - Type 2 diabetes mellitus without complications Category: Medical Qualifiers: Diabetes mellitus complication status: with hyperglycemia Diabetes mellitus fdc insulin use: without field supervisor use Diabetes mellitus type: type 2 Qualified Code(s): E11.65 - Type 2 diabetes mellitus with hyperglycemia Plan: His HgbA1c was at 7.9% on his labs done a few days ago (in-office HgbA1c was previously at 7.3% a few months ago and HgbA1c was at 5.4% back in December 2023) - goal is at least <7.0% Reinforced diabetic diet Continue Metformin 1000 mg BID and Mounjaro 5 mg SQ once a week for now but he is cautioned that his diabetes control has gotten a lot worse over the past year and if he cannot get this reversed over the next few months, then we will need to start him on additional meds for his diabetes, possibly including insulin Will recheck his labs and HgbA1c in 3 months for follow up (2) Benign essential hypertension: Comment: Reviewed sx-no chest pain, dizziness, nausea vomiting , headaches or visual change Code(s): I10 - Essential (primary) hypertension Category: Medical Plan: Reinforced low sodium diet - goal is systolic BP of at least 120 to 130 mm or less Continue Amlodipine 10 mg QD, Spironolactone 25 mg QD, Carvedilol 25 mg BID, Valsartan-HCT 320-25 mg QD, Clonidine 0.2 mg Q HS and Hydralazine 10 mg BID He is reminded to continue monitoring his blood pressure regularly (3) Pure hypercholesterolemia: Code(s): E78.00 - Pure hypercholesterolemia, unspecified Category: Medical Plan: Results of his labs done a few days ago reviewed and discussed with patient Reinforced low cholesterol diet Continue Atorvastatin 40 mg QD and Fenofibrate 54 mg QD Will recheck his labs and fasting lipids in 3 months for follow up (4) Extraocular muscle palsy of right eye: Comment: medial rectus muscle Code(s): 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 Category: Medical Plan: Patient was previously referred to both Neurology and Ophthalmology for further evaluation and management but we have not received and consult or OV notes/reports from either specialties so far We will again try to have the office request for copies of his consult reports from both specialties for documentation (5) Degenerative joint disease of right knee: Code(s): M17.11 - Unilateral primary osteoarthritis, right knee Category: Medical Qualifiers: Osteoarthritis type: primary Qualified Code(s): M17.11 - Unilateral primary osteoarthritis, right knee Plan: Follow up with [facility] as scheduled He was previously being scheduled for some surgery on his knee but he is unclear why his procedure was postponed/canceled Continue Tylenol 1,000 mg every 6 hours PRN for pain To consider referral to rheumatology if his joint symptoms persist or get worse (6) Dizziness: Code(s): R42 - Dizziness and giddiness Category: Medical Plan: Continue Meclizine 25 mg TID PRN (7) Vitamin D deficiency: Code(s): E55.9 - Vitamin D deficiency, unspecified Category: Medical Plan: Continue Vitamin D3 2000 units QD (8) Overweight (BMI 25.0-29.9): Code(s): E66.3 - Overweight Category: Medical Plan: Reinforced diet/exercise as tolerated/lose weight Plan Follow up in 3 months Orders: Orders Hemoglobin A1c 3 Months E11.9 - Type 2 diabetes mellitus without complications Lipid Panel 3 Months E78.00 - Pure hypercholesterolemia, unspecified Complete Blood Count Auto Diff 3 Months D64.9 - Anemia, unspecified UA CC w/rflx Micro + Cult 3 Months R30.0 - Dysuria Comprehensive [place]. Panel Fast 3 Months E78.00 - Pure hypercholesterolemia, unspecified Microalbumin, Random (w Creat) 3 Months E11.9 - Type 2 diabetes mellitus without complications TSH reflex Free T4 3 Months E78.00 - Pure hypercholesterolemia, unspecified Vitamin D 25-OH Total 3 Months E55.9 - Vitamin D deficiency, unspecified
--- OUTSIDE RECORDS SUMMARY | 2024-11-01 14:07 | XMS_ITS | Encounter Summary ---
Author Organization [email or web address] [facility] Address [address] [place] [address] Care Team Providers Care Dermatology Procedural Physician Name Role Phone Unavailable Primary Care Provider [...]
== END 2024-11-01 14:17 | disposition home or self-care (01) ==
LOC: HO.HMCH 13:17
PROVIDERS: PCP Internal Medicine; Visit Provider Internal Medicine
DX: E11.65 Type 2 diabetes mellitus with hyperglycemia (principal); I10 Essential (primary) hypertension; E78.00 Pure hypercholesterolemia, unspecified; H49.9 Unspecified paralytic strabismus; M17.11 Unilateral primary osteoarthritis, right knee; R42 Dizziness and giddiness; E55.9 Vitamin D deficiency, unspecified; E66.3 Overweight

== ENCOUNTER → 2024-11-01 13:17 | Outpatient (BNVA) | payer OTHER, SELFPAY | PROVIDERS: PCP Internal Medicine; Visit Provider Internal Medicine | DX: E11.65 Type 2 diabetes mellitus with hyperglycemia (principal); I10 Essential (primary) hypertension; E78.00 Pure hypercholesterolemia, unspecified; H49.9 Unspecified paralytic strabismus; M17.11 Unilateral primary osteoarthritis, right knee; R42 Dizziness and giddiness; E55.9 Vitamin D deficiency, unspecified; E66.3 Overweight; Z68.25 Body mass index [BMI] 25.0-25.9, adult; Z79.84 Long term (current) use of oral hypoglycemic drugs; Z79.85 Long-term (current) use of injectable non-insulin antidiabetic drugs; Z79.899 Other long term (current) drug therapy; Z13.31 Encounter for screening for depression; Z13.39 Encounter for screening examination for other mental health and behavioral disorders | CPT/HCPCS: 96127 ==